=== PATIENT | female | born 1990 | race Caucasian/White ===

== ENCOUNTER 2017-04-29 04:09 | Inpatient (IN) | payer BC ==
[2017-04-29] MEDS ORDERED: Nalbuphine 20 MG/1 ML Amp IVPUSH PRN (06:21)
[2017-04-29] MEDS ORDERED: Sodium Chloride 0.9% 10 ML Syringe FLUSH PRN (06:21)
[2017-04-29] MEDS ORDERED: Oxytocin/Lactated Ringers 10 UNIT/1,000 ML BAG IV SCH ×2 (06:30→20:30)
--- NOTE | 2017-04-29 07:23 | PCM.LDHP ---
L&D History of Present Illness - General Date of Service: 04/29/17 Admit Problem/Dx: Patient Status Order with Admit Dx/Problem 04/29/17 06:21 Patient Status [ADT] Routine Admission Diagnosis/Problem Admission Diagnosis/Problem Source of Information: Patient History Limitations: Reports: No Limitations - History of Present Illness Introduction:: Patient is a 26 y/o at 39 0/7 wks who presented early this AM with SROM. Having some contractions, but feels they are mild. Was first assessed by nursing was 2-3 cm dilated and 100% effaced. 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 S/s are well controlled at this time. - Past Surgical History HEENT Surgical History: Reports: Oral Surgery Other HEENT Surgeries/Procedures: [place] teeth pulled 2005 Social & Family History - Family History Family Medical History: Noncontributory - Tobacco Use Smoking Status *Q: Never Smoker Second Hand Smoke Exposure: No - Caffeine Use Caffeine Use: Reports: None - Alcohol Use Alcohol Use History: No - Recreational Drug Use Recreational Drug Use: No H&P Review of Systems - Review of Systems: Review Of Systems: See Below General: Reports: No Symptoms Pulmonary: Reports: No Symptoms Cardiovascular: Reports: No Symptoms Gastrointestinal: Reports: No Symptoms Genitourinary: Reports: No Symptoms Musculoskeletal: Reports: No Symptoms Psychiatric: Reports: No Symptoms (well managed) L&D Exam - Exam Exam: See Below - Vital Signs Vital Signs: Last Vital Signs Temp 37.1 C 04/29/17 06:21 Pulse 116 H 04/29/17 06:21 Resp 16 04/29/17 06:21 BP 132/85 04/29/17 06:21 Pulse Ox 98 04/29/17 06:21 Weight: 84.368 kg - OB Specific Contraction Intensity: Mild to Moderate Movement: Active Heart Tones: Present Heart Tones per Min: 140 Heart Rate (FHR) Variability: Moderate (6-25 bmp) Presentation: Vertex - Segura Score Segura Score Cervix Position: Midposition Segura Score Consistency: Soft Segura Score Effacement: >80% Segura Score Dilation: 3-4 cm Segura Score 's Station: -1 ,0 Segura Score Total: 10 - Exam General: Alert, Oriented, Cooperative Lungs: Clear to Auscultation, Normal Respiratory Effort Cardiovascular: Regular Rate, Regular Rhythm GI/Abdominal Exam: Soft, Non-Tender Genitourinary: Normal external exam Extremities: Normal Inspection Skin: Warm, Dry, Intact - Patient Data Lab Results Last 24 hrs: Laboratory Results - last 24 hr 04/29/17 Range/Units 06:39 WBC 10.34 H (3.98-10.04) K/mm3 RBC 3.66 L (3.98-5.22) M/mm3 Hgb 11.8 (11.2-15.7) gm/L Hct 34.8 (34.1-44.9) % MCV 95.1 H (79.4-94.8) fl MCH 32.2 (25.6-32.2) pg MCHC 33.9 (32.2-35.5) g/dl RDW Std Deviation 42.2 (36.4-46.3) fL Plt Count 187 (182-369) K/mm3 MPV 9.6 (9.4-12.3) fl Neut % (Auto) 73.1 H (34.0-71.1) % Lymph % (Auto) 15.4 L (19.3-51.7) % Burke % (Auto) 9.1 (4.7-12.5) % Eos % (Auto) 1.4 (0.7-5.8) Baso % (Auto) 0.3 (0.1-1.2) % Neut # (Auto) 7.57 H (1.56-6.13) K/mm3 Lymph # (Auto) 1.59 (1.18-3.74) K/mm3 Burke # (Auto) 0.94 H (0.24-0.36) K/mm3 Eos # (Auto) 0.14 (0.04-0.36) K/mm3 Baso # (Auto) 0.03 (0.01-0.08) K/mm3 Result Diagrams: 04/29/17 06:39 - Problem List (1) 39 weeks gestation of SNOMED Code(s): 01490751 ICD Code: Z3A.39 - 39 WEEKS GESTATION OF Status: Acute Current Visit: Yes (2) SROM (spontaneous rupture of membranes) SNOMED Code(s): 680439181 ICD Code: [id number] - Status: Acute Current Visit: Yes (3) Depression with anxiety SNOMED Code(s): 626991848 ICD Code: F41.8 - OTHER SPECIFIED ANXIETY DISORDERS Status: Acute Current Visit: Yes Problem List Initiated/Reviewed/Updated: Yes Orders Last 24hrs: Active Orders 24 hr Category Date Time Status Patient Status [ADT] Routine ADT 04/29/17 06:21 Active Activity as Tolerated [RC] PFP Care 04/29/17 06:21 Active Communication Order [RC] ASDIRECTED Care 04/29/17 06:21 Active Heart Tones [RC] ASDIRECTED Care 04/29/17 06:22 Active Notify Provider [RC] PFP Care 04/29/17 06:21 Active Notify Provider [RC] PRN Care 04/29/17 06:21 Active Peripheral IV Care [RC] . DIRECTED Care 04/29/17 06:22 Active Vital Signs [RC] Q8HR Care 04/29/17 06:21 Active CBC WITH AUTO DIFF [HEME] Routine Lab 04/29/17 06:39 Results TYPE AND SCREEN [BBK] Routine Lab 04/29/17 06:39 Received Lactated Ringers [Ringers, Lactated] 1,000 ml Med 04/29/17 06:30 Active IV ASDIRECTED Nalbuphine [Nubain] Med 04/29/17 06:21 Active 10 mg IVPUSH Q2H PRN Oxytocin/Lactated Ringers [Pitocin in LR 10 Units/1,000 Med 04/29/17 06:30 Active ML] 10 unit in 1,000 ml IV .CONTINUOUS Sodium Chloride 0.9% [Saline Flush] Med 04/29/17 06:21 Active 10 ml FLUSH ASDIRECTED PRN Electronic Heart Tones Ext w TOCO [WOMSER] Ot 04/29/17 06:21 Ordered Routine Electronic Heart Tones Internal [WOMSER] Per Unit Ot 04/29/17 06:21 Ordered Routine Peripheral IV Insertion Adult [OM.PC] Routine Ot 04/29/17 06:21 Ordered Resuscitation Status Routine Resus Stat 04/29/17 06:21 Ordered Medication Orders Lactated Ringer's (Ringers, Lactated) 1,000 mls @ 100 mls/hr IV ASDIRECTED CHELSEY Oxytocin/Lactated Ringer's (Pitocin In Lr 10 Units/1,000 Ml) 10 unit in 1,000 mls @ 500 mls/hr IV .CONTINUOUS CHELSEY Nalbuphine HCl (Nubain) 10 mg IVPUSH Q2H PRN PRN Reason: Pain (moderate 4-6) Sodium Chloride (Saline Flush) 10 ml FLUSH ASDIRECTED PRN PRN Reason: Keep Vein Open Assessment/Plan Comment:: 26 y/o at 39 0/7 wks presents with SROM * CBC and T&S * GBS negative, no need for antibiotics * Making good change currently, defer pitocin * Pain management per patient preference * Anticipate * Continue home Wellbutrin and Zoloft
[2017-04-29] MEDS: Lactated Ringers 1,000 ML IV SCH ×4 (09:58→20:10)
--- NOTE | 2017-04-29 10:39 | PCM.PREANE ---
Preanesthetic Assessment - Procedure Proposed Procedure: Labor Epidural - Anesthesia/Transfusion/Family Hx Anesthesia History: No Prior Anesthesia Family History of Anesthesia Reaction: No Transfusion History: No Prior Transfusion(s) - Review of Systems General: No Symptoms Pulmonary: No Symptoms Cardiovascular: No Symptoms Gastrointestinal: Other (GERD) Neurological: No Symptoms Other: Reports: Depression, Anxiety - Physical Assessment NPO Status Date: 04/29/17 NPO Status Time: 08:00 O2 Sat by Pulse Oximetry: 98 Respiratory Rate: 16 Vital Signs: Last Vital Signs Temp 37.1 C 04/29/17 06:21 Pulse 116 H 04/29/17 06:21 Resp 16 04/29/17 06:21 BP 132/85 04/29/17 06:21 Pulse Ox 98 04/29/17 06:21 Height: 1.63 m Weight: 84.368 kg ASA Class: 2 Mental Status: Alert & Oriented x3 Dentition: Reports: Normal Dentition Thyro-Mental Finger Breadths: 3 Mouth Opening Finger Breadths: 3 ROM/Head Extension: Full Lungs: Clear to Auscultation, Normal Respiratory Effort Cardiovascular: Regular Rate, Regular Rhythm - Lab Values: Laboratory Last Values WBC 10.34 K/mm3 (3.98-10.04) H 04/29/17 06:39 RBC 3.66 M/mm3 (3.98-5.22) L 04/29/17 06:39 Hgb 11.8 gm/L (11.2-15.7) 04/29/17 06:39 Hct 34.8 % (34.1-44.9) 04/29/17 06:39 MCV 95.1 fl (79.4-94.8) H 04/29/17 06:39 MCH 32.2 pg (25.6-32.2) 04/29/17 06:39 MCHC 33.9 g/dl (32.2-35.5) 04/29/17 06:39 RDW Std Deviation 42.2 fL (36.4-46.3) 04/29/17 06:39 Plt Count 187 K/mm3 (182-369) 04/29/17 06:39 MPV 9.6 fl (9.4-12.3) 04/29/17 06:39 Neut % (Auto) 73.1 % (34.0-71.1) H 04/29/17 06:39 Lymph % (Auto) 15.4 % (19.3-51.7) L 04/29/17 06:39 Desha % (Auto) 9.1 % (4.7-12.5) 04/29/17 06:39 Eos % (Auto) 1.4 (0.7-5.8) 04/29/17 06:39 Baso % (Auto) 0.3 % (0.1-1.2) 04/29/17 06:39 Neut # (Auto) 7.57 K/mm3 (1.56-6.13) H 04/29/17 06:39 Lymph # (Auto) 1.59 K/mm3 (1.18-3.74) 04/29/17 06:39 Desha # (Auto) 0.94 K/mm3 (0.24-0.36) H 04/29/17 06:39 Eos # (Auto) 0.14 K/mm3 (0.04-0.36) 04/29/17 06:39 Baso # (Auto) 0.03 K/mm3 (0.01-0.08) 04/29/17 06:39 Manual Slide Review Normal smear 04/29/17 06:39 Blood Type A POSITIVE 04/29/17 06:39 Gel Antibody Screen Negative 04/29/17 06:39 - Allergies Allergies/Adverse Reactions: Allergies Allergy/AdvReac Type Severity Reaction Status Date / Time No Known Allergies Allergy Verified 04/29/17 06:52 - Blood Blood Available: No Product(s) Available: None - Anesthesia Plan Pre-Op Medication Ordered: None - Acknowledgements Anesthesia Type Planned: Epidural Pt an Appropriate Candidate for the Planned Anesthesia: Yes Alternatives and Risks of Anesthesia Discussed w Pt/Guardian: Yes Pt/Guardian Understands and Agrees with Anesthesia Plan: Yes 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 S/s are well controlled at this time. - Past Surgical History HEENT Surgical History: Reports: Oral Surgery Other HEENT Surgeries/Procedures: [place] teeth pulled 2005 - SUBSTANCE USE Smoking Status *Q: Never Smoker Second Hand Smoke Exposure: No Recreational Drug Use History: No - HOME MEDS Home Medications: Home Meds PNV95/Ferrous Fumarate/FA [ Tablet] 04/29/17 [History] Sertraline [Zoloft] 150 mg PO DAILY 04/29/17 [History] buPROPion HCl [Wellbutrin Xl] 300 mg PO DAILY 04/29/17 [History] - CURRENT (IN HOUSE) MEDS Current Meds: Current Medications Lactated Ringer's (Ringers, Lactated) 1,000 mls @ 100 mls/hr IV ASDIRECTED CHELSEY Oxytocin/Lactated Ringer's (Pitocin In Lr 10 Units/1,000 Ml) 10 unit in 1,000 mls @ 500 mls/hr IV .CONTINUOUS CHELSEY Nalbuphine HCl (Nubain) 10 mg IVPUSH Q2H PRN PRN Reason: Pain (moderate 4-6) Sodium Chloride (Saline Flush) 10 ml FLUSH ASDIRECTED PRN PRN Reason: Keep Vein Open
[2017-04-29] MEDS ORDERED: diphenhydrAMINE 50 MG/ML SDV IVPUSH PRN ×3 (10:40→23:36)
[2017-04-29] MEDS ORDERED: ePHEDrine 50 MG/ML SDV IVPUSH PRN (10:40)
[2017-04-29] MEDS ORDERED: fentaNYL 100 MCG/2 ML SDV EPIDUR PRN (10:40)
[2017-04-29] MEDS ORDERED: Ondansetron 4 MG/2 ML SDV IVPUSH PRN ×2 (10:40→22:28)
[2017-04-29] MEDS ORDERED: Bupivacaine/fentaNYL/NS 100 ML Bag EPIDUR SCH (10:45)
[2017-04-29] MEDS ORDERED: Bupivacaine 0.25% 10 ML SDV ONE (10:45)
[2017-04-29] MEDS ORDERED: Citric Acid/Sodium Citrate Solution 30 ML Cup ONE (20:51)
[2017-04-29] MEDS ORDERED: Metoclopramide 10 MG/2 ML SDV ONE (20:51)
[2017-04-29] MEDS ORDERED: ceFAZolin 2 GM in Premix Bag 1 BAG IV ONE (20:58)
[2017-04-29] MEDS ORDERED: Metoclopramide 10 MG/2 ML SDV IVPUSH ONE (20:58)
[2017-04-29] MEDS ORDERED: Citric Acid/Sodium Citrate Solution 30 ML Cup PO ONE (20:58)
--- NOTE | 2017-04-29 20:59 | PCM.PRNOTE ---
- Free Text/Narrative Note: Patient found to be complete and began pushing shortly thereafter. After about 2 hours of pushing she was having significant pain through her epidural and so anesthesia called to rebolus epidural. Pitocin then started to aid in pushing effort. At 3 hours of pushing she was becoming significantly fatigued. Reviewed options of trial of vacuum assistance, continued pushing without operative attempt, or moving to a primary . Patient did desire attempt at vacuum. Risks of scalp laceration, intracranial hematoma , and significant vaginal lacerations reviewed. See below. The patient was pushing in the dorsal lithotomy position. Sterile vaginal exam complete/complete/+2 station. head in PILAR presentation. Maternal pushing effort was good and the pelvis was felt to be adequate for an instrument assisted delivery. Given maternal exhaustion the decision was made to proceed with vacuum assisted vaginal delivery. The mushroom cup was placed without difficulty with care to avoid the vaginal side cuh. Time of placement was 2041. Total pressure applied 550 mmHg. Over the next 4 contraction assistance given with movement of baby noted, but patient not tolerating well. Vacuum removed at 2046. Total pop offs 0. Discussed option of continued pushing at this time vs moving to primary and she preferred . OR crew notified along with anesthesia and pediatrics. Fareed VALDERRAMA.
--- NOTE | 2017-04-29 21:00 | PCM.OPNOTE ---
- General Post-Op/Procedure Note Date of Surgery/Procedure: 04/29/17 Operative Procedure(s): Primary Low Transverse Findings: Baby boy in a vertex presentation. Weight of 6 lbs 15 oz. APGARS of 5 & 7. Normal appearance of the uterus, fallopian tubes, and ovaries Pre Op Diagnosis: 39 weeks gestation. Normal labor. Failure to progress in 2nd stage with failed VAVD Post-Op Diagnosis: Same Anesthesia Technique: Epidural Primary Surgeon: Iman Cherry Secondary Surgeon: Kishor Finnegan Anesthesia Provider: Dominick Lau Pathology: Cord blood collected. Placenta discarded Fluid Replacement, Intraop: 1,200 Output, Urine Amount: 100 EBL in mLs: 500 Complications: None Condition: Good Free Text/Narrative:: The risks, benefits, indications, potential complications, and alternatives were explained to the patient and informed consent obtained. After induction of anesthesia, the patient was placed in a supine position and then draped and prepped in the usual sterile manner. A Pfannenstiel incision was made and carried down through the subcutaneous tissue to the fascia. Fascial incision was made and extended transversely. The fascia was from the underlying rectus tissue superiorly and inferiorly. The peritoneum was identified and entered. Peritoneal incision was extended longitudinally. The utero-vesical peritoneal reflection was incised transversely and the bladder flap was bluntly freed from the lower uterine segment. A low transverse uterine incision was made sharply with a scalpel and extended bluntly in a cephalocaudad direction. Baby so low in the pelvis that infant shoulder was at level of hysterotomy. With slow continued advancement of the my hand around baby's head was finally able to elevate baby up through hysterotomoy. A baby boy was delivered with APGARS as above. After the umbilical cord was clamped and cut cord blood was obtained for evaluation. The placenta was removed intact and appeared normal. The uterus was exteriorized and cleared of clots. The uterine outline, tubes and ovaries appeared normal. The uterine incision was closed with running locked sutures of 0 Vicryl. Hemostasis was obtained with a second imbricating layer of 0 vicryl. Several interrupted suture of 0 vicryl also placed in a figure of eight fashion. The uterus was then placed back into the abdomen. The infracolic gutters were cleared of blood clots. The fascia was then reapproximated with running sutures of 0 Vicryl. The sucutaneous tissue was irrigated with sterile warm normal saline, hemostasis obtained with cautery. The skin was reapproximated with running Subcuticular 4 -0 monocryl sutures. Instrument, sponge, and needle counts were correct prior the abdominal closure and at the conclusion of the case.
--- NOTE | 2017-04-29 21:12 | PCM.PNLD ---
Labor Progress Note - VS & Meds Vital Signs: Last Vital Signs Temp 37.1 C 04/29/17 06:21 Pulse 116 H 04/29/17 06:21 Resp 16 04/29/17 10:40 BP 132/85 04/29/17 06:21 Pulse Ox 98 04/29/17 10:40 Active Medications: Current Medications Diphenhydramine HCl (Benadryl) 25 mg IVPUSH Q6H PRN PRN Reason: Pruritis Ephedrine Sulfate (Ephedrine Sulfate) 5 mg IVPUSH ASDIRECTED PRN PRN Reason: Hypotension Fentanyl (Sublimaze) 100 mcg EPIDUR Q3H PRN PRN Reason: Pain Last Admin: 04/29/17 11:25 Dose: 100 mcg Fentanyl/Bupivacaine HCl (Fentanyl/Bupivacaine/Ns 2 Mcg-0.125% 100 Ml) 100 ml EPIDUR ASDIRECTED CHELSEY Last Admin: 04/29/17 11:26 Dose: 100 ml Lactated Ringer's (Ringers, Lactated) 1,000 mls @ 100 mls/hr IV ASDIRECTED CHELSEY Last Admin: 04/29/17 20:10 Dose: 100 mls/hr Oxytocin/Lactated Ringer's (Pitocin In Lr 10 Units/1,000 Ml) 10 unit in 1,000 mls @ 500 mls/hr IV .CONTINUOUS CHELSEY Oxytocin/Lactated Ringer's (Pitocin In Lr 10 Units/1,000 Ml) 10 unit in 1,000 mls @ 12 mls/hr IV TITRATE CHELSEY; 2 MUNITS/MIN PRN Reason: Protocol Last Titration: 04/29/17 20:52 Dose: 0 munits/min, 0 mls/hr Cefazolin Sodium/Dextrose 2 gm (/ Premix) 50 mls @ 100 mls/hr IV ONETIME ONE Stop: 04/29/17 21:27 Nalbuphine HCl (Nubain) 10 mg IVPUSH Q2H PRN PRN Reason: Pain (moderate 4-6) Non-Formulary Medication (Sertraline) 150 mg PO DAILY CHELSEY Non-Formulary Medication (Bupropion Hcl [Wellbutrin Xl]) 300 mg PO DAILY CHELSEY Ondansetron HCl (Zofran) 4 mg IVPUSH ONETIME PRN PRN Reason: Nausea/Vomiting Sodium Chloride (Saline Flush) 10 ml FLUSH ASDIRECTED PRN PRN Reason: Keep Vein Open Discontinued Medications Citric Acid/Sodium Citrate (Bicitra Solution) Confirm Administered Dose 30 ml .ROUTE .STK-MED ONE Stop: 04/29/17 20:52 Citric Acid/Sodium Citrate (Bicitra Solution) 30 ml PO ONETIME ONE Stop: 04/29/17 20:59 Lidocaine/Epinephrine (Xylocaine-Mpf 2%-Epi 1:200,000) Confirm Administered Dose 20 ml .ROUTE .STK-MED ONE Stop: 04/29/17 21:14 Metoclopramide HCl (Reglan) Confirm Administered Dose 10 mg .ROUTE .STK-MED ONE Stop: 04/29/17 20:52 Metoclopramide HCl (Reglan) 10 mg IVPUSH ONETIME ONE Stop: 04/29/17 20:59 Ondansetron HCl (Zofran) Confirm Administered Dose 4 mg .ROUTE .STK-MED ONE Stop: 04/29/17 21:14 Oxytocin (Pitocin) Confirm Administered Dose 10 unit .ROUTE .STK-MED ONE Stop: 04/29/17 21:14 Sodium Bicarbonate (Sodium Bicarbonate 8.4%) Confirm Administered Dose 50 meq .ROUTE .STK-MED ONE Stop: 04/29/17 21:14 - Uterine Contractions Uterine Monitoring Mode: External [place] Contraction Intensity: Mild to Moderate - Monitoring Monitor Mode: External Ultrasound Heart Rate (FHR) Baseline: 135 Heart Rate (FHR) Variability: Moderate (6-25 bmp) Accelerations: Present, 15x15 Decelerations: None Strip Review: Category I - Labor Progress (Free Text) Labor Progress: Patient checked by nursing early and found to be 5 cm. Comfortable with epidural. Continue present management.
[2017-04-29] MEDS ORDERED: Ondansetron 4 MG/2 ML SDV ONE ×3 (21:13→21:18)
[2017-04-29] MEDS ORDERED: Sodium Bicarbonate 8.4% 50 MEQ/50 ML SDV ONE (21:13)
[2017-04-29] MEDS ORDERED: Oxytocin 10 Units/1 ML SDV ONE ×3 (21:13→21:18)
[2017-04-29] MEDS ORDERED: Lidocaine 2% with EPINEPHrine 1:200,000 20 ML SDV ONE (21:13)
--- NOTE | 2017-04-29 21:16 | PCM.PNLD ---
Labor Progress Note - VS & Meds Vital Signs: Last Vital Signs Temp 37.1 C 04/29/17 06:21 Pulse 116 H 04/29/17 06:21 Resp 16 04/29/17 10:40 BP 132/85 04/29/17 06:21 Pulse Ox 98 04/29/17 10:40 Active Medications: Current Medications Diphenhydramine HCl (Benadryl) 25 mg IVPUSH Q6H PRN PRN Reason: Pruritis Ephedrine Sulfate (Ephedrine Sulfate) 5 mg IVPUSH ASDIRECTED PRN PRN Reason: Hypotension Fentanyl (Sublimaze) 100 mcg EPIDUR Q3H PRN PRN Reason: Pain Last Admin: 04/29/17 11:25 Dose: 100 mcg Fentanyl/Bupivacaine HCl (Fentanyl/Bupivacaine/Ns 2 Mcg-0.125% 100 Ml) 100 ml EPIDUR ASDIRECTED CHELSEY Last Admin: 04/29/17 11:26 Dose: 100 ml Lactated Ringer's (Ringers, Lactated) 1,000 mls @ 100 mls/hr IV ASDIRECTED CHELSEY Last Admin: 04/29/17 20:10 Dose: 100 mls/hr Oxytocin/Lactated Ringer's (Pitocin In Lr 10 Units/1,000 Ml) 10 unit in 1,000 mls @ 500 mls/hr IV .CONTINUOUS CHELSEY Oxytocin/Lactated Ringer's (Pitocin In Lr 10 Units/1,000 Ml) 10 unit in 1,000 mls @ 12 mls/hr IV TITRATE CHELSEY; 2 MUNITS/MIN PRN Reason: Protocol Last Titration: 04/29/17 20:52 Dose: 0 munits/min, 0 mls/hr Cefazolin Sodium/Dextrose 2 gm (/ Premix) 50 mls @ 100 mls/hr IV ONETIME ONE Stop: 04/29/17 21:27 Nalbuphine HCl (Nubain) 10 mg IVPUSH Q2H PRN PRN Reason: Pain (moderate 4-6) Non-Formulary Medication (Sertraline) 150 mg PO DAILY CHELSEY Non-Formulary Medication (Bupropion Hcl [Wellbutrin Xl]) 300 mg PO DAILY CHELSEY Ondansetron HCl (Zofran) 4 mg IVPUSH ONETIME PRN PRN Reason: Nausea/Vomiting Sodium Chloride (Saline Flush) 10 ml FLUSH ASDIRECTED PRN PRN Reason: Keep Vein Open Discontinued Medications Citric Acid/Sodium Citrate (Bicitra Solution) Confirm Administered Dose 30 ml .ROUTE .[facility]-MED ONE Stop: 04/29/17 20:52 Last Admin: 04/29/17 21:11 Dose: Not Given Citric Acid/Sodium Citrate (Bicitra Solution) 30 ml PO ONETIME ONE Stop: 04/29/17 20:59 Last Admin: 04/29/17 21:11 Dose: 30 ml Lactated Ringer's (Ringers, Lactated) Confirm Administered Dose 1,000 mls @ as directed .ROUTE .ST-MED ONE Stop: 04/29/17 21:19 Lidocaine/Epinephrine (Xylocaine-Mpf 2%-Epi 1:200,000) Confirm Administered Dose 20 ml .ROUTE .[facility]-MED ONE Stop: 04/29/17 21:14 Metoclopramide HCl (Reglan) Confirm Administered Dose 10 mg .ROUTE .[facility] ONE Stop: 04/29/17 20:52 Last Admin: 04/29/17 21:11 Dose: Not Given Metoclopramide HCl (Reglan) 10 mg IVPUSH ONETIME ONE Stop: 04/29/17 20:59 Last Admin: 04/29/17 21:11 Dose: 10 mg Morphine Sulfate (Duramorph Pf) Confirm Administered Dose 10 mg .ROUTE .ST-MED ONE Stop: 04/29/17 21:19 Ondansetron HCl (Zofran) Confirm Administered Dose 4 mg .ROUTE .[facility]-MED ONE Stop: 04/29/17 21:14 Ondansetron HCl (Zofran) Confirm Administered Dose 4 mg .ROUTE .ST-MED ONE Stop: 04/29/17 21:19 Ondansetron HCl (Zofran) Confirm Administered Dose 4 mg .ROUTE .ST-MED ONE Stop: 04/29/17 21:19 Oxytocin (Pitocin) Confirm Administered Dose 10 unit .ROUTE .ST-MED ONE Stop: 04/29/17 21:14 Oxytocin (Pitocin) Confirm Administered Dose 10 unit .ROUTE .STK-MED ONE Stop: 04/29/17 21:19 Oxytocin (Pitocin) Confirm Administered Dose 10 unit .ROUTE .ST-MED ONE Stop: 04/29/17 21:19 Sodium Bicarbonate (Sodium Bicarbonate 8.4%) Confirm Administered Dose 50 meq .ROUTE .STK-MED ONE Stop: 04/29/17 21:14 - Uterine Contractions Uterine Monitoring Mode: External [place] Contraction Intensity: Moderate to Strong - Monitoring Monitor Mode: External Ultrasound Heart Rate (FHR) Baseline: 145 Heart Rate (FHR) Variability: Moderate (6-25 bmp) Accelerations: Present, 15x15 Decelerations: Variable, Intermittent (<50% x 20 min) Strip Review: Category II - Vaginal Exam Dilation (cm): 10 Effacement (Percent): 100 Station: 0 Cervical Position: Anterior - Labor Progress (Free Text) Labor Progress: Patient doing well. Will get all set up and then start pushing.
[2017-04-29] MEDS ORDERED: Lactated Ringers 1,000 ML ONE (21:18)
[2017-04-29] MEDS ORDERED: Morphine PF 10 MG/10 ML SDV ONE (21:18)
[2017-04-29] MEDS ORDERED: Bupivacaine 0.5% 30 ML SDV ONE (21:19)
[2017-04-29] MEDS ORDERED: ceFAZolin 1 GM Vial ONE (21:44)
[2017-04-29] MEDS ORDERED: Ketorolac 30 MG/ML SDV ONE (21:58)
[2017-04-29] MEDS ORDERED: Meperidine PF 50 MG/ML Syringe ONE (22:04)
--- NOTE | 2017-04-29 22:26 | PCM.POSTAN ---
POST ANESTHESIA ASSESSMENT - MENTAL STATUS Mental Status: Alert, Oriented - VITAL SIGNS Pulse Rate: 92 SaO2: 93 Resp Rate: 17 Blood Pressure: 112/67 Temperature: 37.4 C - RESPIRATORY Respiratory Status: Respiratory Rate WNL, Airway Patent, O2 Saturation Stable, Supplemental Oxygen - CARDIOVASCULAR CV Status: Pulse Rate WNL, Blood Pressure Stable - GASTROINTESTINAL GI Status: No Symptoms - PAIN Pain Score: 0 - POST OP HYDRATION Hydration Status: Adequate & Stable
[2017-04-29] MEDS ORDERED: fentaNYL 100 MCG/2 ML SDV IVPUSH PRN (22:28)
[2017-04-29] MEDS ORDERED: Docusate Sodium 100 MG Cap PO PRN (23:36)
[2017-04-29] MEDS ORDERED: Dextrose 5%-Lactated Ringers 1,000 ML IV SCH (23:36)
[2017-04-29] MEDS ORDERED: Lanolin 100% Cream 7 GM Tube TOP PRN (23:36)
[2017-04-29] MEDS ORDERED: Ondansetron 4 MG/2 ML SDV IV PRN (23:36)
[2017-04-30] MEDS: Ketorolac 30 MG/ML SDV IVPUSH SCH ×3 (04:12→15:55)
--- NOTE | 2017-04-30 08:25 | PCM.PNPP ---
- General Info Date of Service: 04/30/17 Functional Status: Reports: Pain Controlled, Tolerating Diet, Ambulating - Review of Systems General: Reports: No Symptoms Pulmonary: Reports: No Symptoms Cardiovascular: Reports: No Symptoms Gastrointestinal: Reports: Abdominal Pain Genitourinary: Reports: No Symptoms Musculoskeletal: Reports: No Symptoms - Patient Data Vital Signs - Most Recent: Last Vital Signs Temp 36.4 C 04/30/17 04:00 Pulse 100 04/30/17 04:00 Resp 18 04/30/17 06:48 BP 118/63 04/30/17 04:00 Pulse Ox 99 04/30/17 06:48 Weight - Most Recent: 84.368 kg I&O - Last 24 Hours: Intake & Output 04/29/17 04/30/17 04/30/17 22:59 06:59 14:59 Intake Total 3000 1200 Output Total 100 650 100 Balance 2900 -650 1100 Lab Results - Last 24 Hours: Laboratory Results - last 24 hr 04/29/17 04/30/17 Range/Units 06:39 05:50 WBC 13.15 H (3.98-10.04) K/mm3 RBC 3.04 L (3.98-5.22) M/mm3 Hgb 9.8 L (11.2-15.7) gm/L Hct 29.7 L (34.1-44.9) % MCV 97.7 H (79.4-94.8) fl MCH 32.2 (25.6-32.2) pg MCHC 33.0 (32.2-35.5) g/dl RDW Std Deviation 42.6 (36.4-46.3) fL Plt Count 156 L (182-369) K/mm3 MPV 10.4 (9.4-12.3) fl Blood Type A POSITIVE Gel Antibody Screen Negative Med Orders - Current: Current Medications Diphenhydramine HCl (Benadryl) 25 mg IVPUSH Q6H PRN PRN Reason: Itching or Nausea Last Admin: 04/30/17 02:09 Dose: 25 mg Docusate Sodium (Colace) 100 mg PO Q12H PRN PRN Reason: Constipation Emollient Ointment (Lansinoh Hpa) 0 gm TOP ASDIRECTED PRN PRN Reason: Sore Nipples Ibuprofen (Motrin) 600 mg PO Q6H PRN PRN Reason: mild pain or fever Ketorolac Tromethamine (Toradol) 30 mg IVPUSH Q6H [facility] Stop: 04/30/17 16:01 Last Admin: 04/30/17 04:12 Dose: 30 mg Non-Formulary Medication (Sertraline) 150 mg PO DAILY [facility] Non-Formulary Medication (Bupropion Hcl [Wellbutrin Xl]) 300 mg PO DAILY [facility] Ondansetron HCl (Zofran) 4 mg IV Q8H PRN PRN Reason: Nausea/Vomiting Oxycodone/Acetaminophen (Percocet 325-5 Mg) 2 tab PO Q4H PRN PRN Reason: Pain (moderate 4-6) Discontinued Medications Bupivacaine HCl (Marcaine 0.5%) Confirm Administered Dose 30 ml .ROUTE .STK-MED ONE Stop: 04/29/17 21:20 Cefazolin Sodium (Ancef) Confirm Administered Dose 2 gm .ROUTE .STK-MED ONE Stop: 04/29/17 21:45 Citric Acid/Sodium Citrate (Bicitra Solution) Confirm Administered Dose 30 ml .ROUTE .STK-MED ONE Stop: 04/29/17 20:52 Last Admin: 04/29/17 21:11 Dose: Not Given Citric Acid/Sodium Citrate (Bicitra Solution) 30 ml PO ONETIME ONE Stop: 04/29/17 20:59 Last Admin: 04/29/17 21:11 Dose: 30 ml Diphenhydramine HCl (Benadryl) 25 mg IVPUSH Q6H PRN PRN Reason: Pruritis Diphenhydramine HCl (Benadryl) 25 mg IVPUSH Q6H PRN PRN Reason: Pruritis Ephedrine Sulfate (Ephedrine Sulfate) 5 mg IVPUSH ASDIRECTED PRN PRN Reason: Hypotension Fentanyl (Sublimaze) 100 mcg EPIDUR Q3H PRN PRN Reason: Pain Last Admin: 04/29/17 11:25 Dose: 100 mcg Fentanyl (Sublimaze) 50 mcg IVPUSH Q5M PRN PRN Reason: Pain Stop: 04/29/17 22:44 Fentanyl/Bupivacaine HCl (Fentanyl/Bupivacaine/Ns 2 Mcg-0.125% 100 Ml) 100 ml EPIDUR ASDIRECTED [facility] Last Admin: 04/29/17 11:26 Dose: 100 ml Lactated Ringer's (Ringers, Lactated) 1,000 mls @ 100 mls/hr IV ASDIRECTED [facility] Last Admin: 04/29/17 20:10 Dose: 100 mls/hr Oxytocin/Lactated Ringer's (Pitocin In Lr 10 Units/1,000 Ml) 10 unit in 1,000 mls @ 500 mls/hr IV .CONTINUOUS [facility] Oxytocin/Lactated Ringer's (Pitocin In Lr 10 Units/1,000 Ml) 10 unit in 1,000 mls @ 12 mls/hr IV TITRATE [facility]; 2 MUNITS/MIN PRN Reason: Protocol Last Titration: 04/29/17 20:52 Dose: 0 munits/min, 0 mls/hr Cefazolin Sodium/Dextrose 2 gm (/ Premix) 50 mls @ 100 mls/hr IV ONETIME ONE Stop: 04/29/17 21:27 Lactated Ringer's (Ringers, Lactated) Confirm Administered Dose 1,000 mls @ as directed .ROUTE .STK-MED ONE Stop: 04/29/17 21:19 Dextrose/Lactated Ringer's (Dextrose 5%-Lactated Ringers) 1,000 mls @ 125 mls/ hr IV ASDIRECTED [facility] Stop: 04/30/17 07:35 Last Admin: 04/30/17 00:44 Dose: 125 mls/hr Ketorolac Tromethamine (Toradol) Confirm Administered Dose 30 mg .ROUTE .STK- MED ONE Stop: 04/29/17 21:59 Lidocaine/Epinephrine (Xylocaine-Mpf 2%-Epi 1:200,000) Confirm Administered Dose 20 ml .ROUTE .STK-MED ONE Stop: 04/29/17 21:14 Meperidine HCl (Demerol) Confirm Administered Dose 50 mg .ROUTE .STK-MED ONE Stop: 04/29/17 22:05 Metoclopramide HCl (Reglan) Confirm Administered Dose 10 mg .ROUTE .STK-MED ONE Stop: 04/29/17 20:52 Last Admin: 04/29/17 21:11 Dose: Not Given Metoclopramide HCl (Reglan) 10 mg IVPUSH ONETIME ONE Stop: 04/29/17 20:59 Last Admin: 04/29/17 21:11 Dose: 10 mg Morphine Sulfate (Duramorph Pf) Confirm Administered Dose 10 mg .ROUTE .STK-MED ONE Stop: 04/29/17 21:19 Nalbuphine HCl (Nubain) 10 mg IVPUSH Q2H PRN PRN Reason: Pain (moderate 4-6) Ondansetron HCl (Zofran) 4 mg IVPUSH ONETIME PRN PRN Reason: Nausea/Vomiting Ondansetron HCl (Zofran) Confirm Administered Dose 4 mg .ROUTE .STK-MED ONE Stop: 04/29/17 21:14 Ondansetron HCl (Zofran) Confirm Administered Dose 4 mg .ROUTE .STK-MED ONE Stop: 04/29/17 21:19 Ondansetron HCl (Zofran) Confirm Administered Dose 4 mg .ROUTE .STK-MED ONE Stop: 04/29/17 21:19 Ondansetron HCl (Zofran) 4 mg IVPUSH ONETIME PRN PRN Reason: Nausea/Vomiting Oxytocin (Pitocin) Confirm Administered Dose 10 unit .ROUTE .STK-MED ONE Stop: 04/29/17 21:14 Oxytocin (Pitocin) Confirm Administered Dose 10 unit .ROUTE .STK-MED ONE Stop: 04/29/17 21:19 Oxytocin (Pitocin) Confirm Administered Dose 10 unit .ROUTE .STK-MED ONE Stop: 04/29/17 21:19 Sodium Bicarbonate (Sodium Bicarbonate 8.4%) Confirm Administered Dose 50 meq .ROUTE .STK-MED ONE Stop: 04/29/17 21:14 Sodium Chloride (Saline Flush) 10 ml FLUSH ASDIRECTED PRN PRN Reason: Keep Vein Open - Infant Interaction Infant Disposition, : [place] in Room with Family Infant Interaction: Holding Infant Feeding: Bottle Fed Support Person: , Mother - Recovery Exam Fundal Tone: Firm Fundal Level: 1 Fingerbreadths Below Umbilicus Fundal Placement: Midline Lochia Amount: Small Lochia Color: Rubra/Red Perineum Description: Edematous Bladder Status: Indwelling Catheter in Place - Exam General: Alert, Oriented, Cooperative Lungs: Clear to Auscultation, Normal Respiratory Effort Cardiovascular: Regular Rate, Regular Rhythm GI/Abdominal Exam: Soft, No Distention, Tender Extremities: Normal Inspection, Pedal Edema Skin: Warm, Dry, Intact Wound/Incisions: Healing Well, Dressing Dry and Intact - Problem List & Annotations (1) 39 weeks gestation of SNOMED Code(s): 72000387 Code(s): Z3A.39 - 39 WEEKS GESTATION OF Status: Acute Current Visit: Yes (2) SROM (spontaneous rupture of membranes) SNOMED Code(s): 111174349 Code(s): EAZ7688 - Status: Acute Current Visit: Yes (3) Depression with anxiety SNOMED Code(s): 160067393 Code(s): F41.8 - OTHER SPECIFIED ANXIETY DISORDERS Status: Acute Current Visit: Yes - Problem List Review Problem List Initiated/Reviewed/Updated: Yes - My Orders Last 24 Hours: My Active Orders 04/29/17 20:58 Procedure Site Prep Instruct [RC] ASDIRECTED Verify Patient Consent Obtain [RC] PER UNIT ROUTINE Vital Signs [RC] PFP 04/29/17 23:36 Activity as Tolerated [RC] .Routine Activity as Tolerated [RC] .Routine Antiembolic Devices [RC] PER UNIT ROUTINE Antiembolic Devices [RC] PER UNIT ROUTINE Communication Order [RC] PER UNIT ROUTINE Communication Order [RC] PER UNIT ROUTINE Intake and Output [RC] Q4HR Intake and Output [RC] Q4HR Notify Provider Intake and Out [RC] ASDIRECTED Notify Provider Intake and Out [RC] ASDIRECTED RT Incentive Spirometry [RC] Q2HWA RT Incentive Spirometry [RC] Q2HWA Vital Signs [RC] PER UNIT ROUTINE Acetaminophen/oxyCODONE [Percocet 325-5 MG] 2 tab PO Q4H PRN Acetaminophen/oxyCODONE [Percocet 325-5 MG] 2 tab PO Q4H PRN Dextrose 5%-Lactated Ringers 1,000 ml IV ASDIRECTED Docusate Sodium [Colace] 100 mg PO Q12H PRN Docusate Sodium [Colace] 100 mg PO Q12H PRN Lanolin [Lansinoh HPA] See Dose Instructions TOP ASDIRECTED PRN Lanolin [Lansinoh HPA] See Dose Instructions TOP ASDIRECTED PRN Ondansetron [Zofran] 4 mg IV Q8H PRN Ondansetron [Zofran] 4 mg IV Q8H PRN diphenhydrAMINE [Benadryl] 25 mg IVPUSH Q6H PRN diphenhydrAMINE [Benadryl] 25 mg IVPUSH Q6H PRN Assess Lochia [WOMSER] Per Unit Routine Assess Lochia [WOMSER] Per Unit Routine Assess Uterine Involution [WOMSER] Per Unit Routine Assess Uterine Involution [WOMSER] Per Unit Routine Breast Pump [WOMSER] Per Unit Routine Breast Pump [WOMSER] Per Unit Routine Heat Therapy [OM.PC] Per Unit Routine Heat Therapy [OM.PC] Per Unit Routine Sequential Compression Device [OM.PC] Per Unit Routine Sequential Compression Device [OM.PC] Per Unit Routine 04/30/17 04:00 Ketorolac [Toradol] 30 mg IVPUSH Q6H 04/30/17 09:00 Sertraline 150 mg PO DAILY buPROPion HCl [Wellbutrin Xl] 300 mg PO DAILY 04/30/17 22:00 Ibuprofen [Motrin] 600 mg PO Q6H PRN Ibuprofen [Motrin] 600 mg PO Q6H PRN 04/30/17 22:28 Urinary Catheter Removal [RC] Per Unit Routine - Assessment Assessment:: 26 y/o G1 now P1001 POD#1 from PLTCS for FTP in 2nd stage after spontaneous onset of labor at 39 wks - Plan Plan:: S/p PLTCS * Routine cares * Bottle feeding * Continue home Wellbutrin and Zoloft * Discharge home in 1-2 days
--- NOTE | 2017-04-30 09:58 | PCM48HPAN ---
Post Anesthesia Note - EVALUATION WITHIN 48HRS OF ANESTHETIC Vital Signs in Normal Range: Yes Patient Participated in Evaluation: Yes Respiratory Function Stable: Yes Airway Patent: Yes Cardiovascular Function Stable: Yes Hydration Status Stable: Yes Pain Control Satisfactory: Yes Nausea and Vomiting Control Satisfactory: Yes Mental Status Recovered: Yes - COMMENTS/OBSERVATIONS Free Text/Narrative:: Pt reports both she and baby are doing well. epidural workedc well, required one re-bolus. went to after 4 hours of pushing without progress. epidural has worn off completely. has not used restroom as [facility] was just d/c' d. pt did have one episode of itching relieved with benadryl. no n/v, no headache, no f/c. site ok. ambulating, taking p.o.
[2017-04-30] MEDS: SERTRALINE 100 MG PO SCH (11:00)
[2017-04-30] MEDS: BUPROPION HCL 300 MG PO SCH (11:00)
[2017-04-30] MEDS: Acetaminophen/oxyCODONE 325-5 MG Tab PO PRN ×2 (17:26→21:30)
[2017-04-30] MEDS ORDERED: Ibuprofen 600 MG Tab PO PRN (22:00)
[2017-05-01] MEDS: Acetaminophen/oxyCODONE 325-5 MG Tab PO PRN ×3 (04:13→14:56)
--- NOTE | 2017-05-01 07:02 | PCM.PNPP ---
- General Info Date of Service: 05/01/17 Functional Status: Reports: Pain Controlled, Tolerating Diet, Ambulating, Urinating - Review of Systems General: Reports: No Symptoms Pulmonary: Reports: No Symptoms Cardiovascular: Reports: No Symptoms Gastrointestinal: Reports: No Symptoms Genitourinary: Reports: No Symptoms Musculoskeletal: Reports: No Symptoms Neurological: Reports: No Symptoms - Patient Data Vital Signs - Most Recent: Last Vital Signs Temp 36.6 C 05/01/17 04:16 Pulse 92 05/01/17 04:16 Resp 14 05/01/17 04:16 BP 118/71 05/01/17 04:16 Pulse Ox 97 05/01/17 04:16 Weight - Most Recent: 84.368 kg I&O - Last 24 Hours: Intake & Output 04/30/17 05/01/17 05/01/17 22:59 06:59 14:59 Intake Total 240 240 Output Total 600 Balance -360 240 Lab Results - Last 24 Hours: Laboratory Results - last 24 hr 04/30/17 Range/Units 05:50 WBC 13.15 H (3.98-10.04) K/mm3 RBC 3.04 L (3.98-5.22) M/mm3 Hgb 9.8 L (11.2-15.7) gm/L Hct 29.7 L (34.1-44.9) % MCV 97.7 H (79.4-94.8) fl MCH 32.2 (25.6-32.2) pg MCHC 33.0 (32.2-35.5) g/dl RDW Std Deviation 42.6 (36.4-46.3) fL Plt Count 156 L (182-369) K/mm3 MPV 10.4 (9.4-12.3) fl Med Orders - Current: Current Medications Diphenhydramine HCl (Benadryl) 25 mg IVPUSH Q6H PRN PRN Reason: Itching or Nausea Last Admin: 04/30/17 02:09 Dose: 25 mg Docusate Sodium (Colace) 100 mg PO Q12H PRN PRN Reason: Constipation Emollient Ointment (Lansinoh Hpa) 0 gm TOP ASDIRECTED PRN PRN Reason: Sore Nipples Ibuprofen (Motrin) 600 mg PO Q6H PRN PRN Reason: mild pain or fever Ondansetron HCl (Zofran) 4 mg IV Q8H PRN PRN Reason: Nausea/Vomiting Oxycodone/Acetaminophen (Percocet 325-5 Mg) 2 tab PO Q4H PRN PRN Reason: Pain (moderate 4-6) Last Admin: 05/01/17 04:13 Dose: 2 tab Sertraline 100 Mg (Tablets) 0 each PO DAILY [facility] Last Admin: 04/30/17 11:00 Dose: 1.5 each Bupropion Hcl Xl 300 (Mg Tablets) 0 each PO DAILY [facility] Last Admin: 04/30/17 11:00 Dose: 1 each Discontinued Medications Bupivacaine HCl (Marcaine 0.5%) Confirm Administered Dose 30 ml .ROUTE .STK-MED ONE Stop: 04/29/17 21:20 Cefazolin Sodium (Ancef) Confirm Administered Dose 2 gm .ROUTE .STK-MED ONE Stop: 04/29/17 21:45 Citric Acid/Sodium Citrate (Bicitra Solution) Confirm Administered Dose 30 ml .ROUTE .STK-MED ONE Stop: 04/29/17 20:52 Last Admin: 04/29/17 21:11 Dose: Not Given Citric Acid/Sodium Citrate (Bicitra Solution) 30 ml PO ONETIME ONE Stop: 04/29/17 20:59 Last Admin: 04/29/17 21:11 Dose: 30 ml Diphenhydramine HCl (Benadryl) 25 mg IVPUSH Q6H PRN PRN Reason: Pruritis Diphenhydramine HCl (Benadryl) 25 mg IVPUSH Q6H PRN PRN Reason: Pruritis Ephedrine Sulfate (Ephedrine Sulfate) 5 mg IVPUSH ASDIRECTED PRN PRN Reason: Hypotension Fentanyl (Sublimaze) 100 mcg EPIDUR Q3H PRN PRN Reason: Pain Last Admin: 04/29/17 11:25 Dose: 100 mcg Fentanyl (Sublimaze) 50 mcg IVPUSH Q5M PRN PRN Reason: Pain Stop: 04/29/17 22:44 Fentanyl/Bupivacaine HCl (Fentanyl/Bupivacaine/Ns 2 Mcg-0.125% 100 Ml) 100 ml EPIDUR ASDIRECTED [facility] Last Admin: 04/29/17 11:26 Dose: 100 ml Lactated Ringer's (Ringers, Lactated) 1,000 mls @ 100 mls/hr IV ASDIRECTED [facility] Last Admin: 04/29/17 20:10 Dose: 100 mls/hr Oxytocin/Lactated Ringer's (Pitocin In Lr 10 Units/1,000 Ml) 10 unit in 1,000 mls @ 500 mls/hr IV .CONTINUOUS [facility] Oxytocin/Lactated Ringer's (Pitocin In Lr 10 Units/1,000 Ml) 10 unit in 1,000 mls @ 12 mls/hr IV TITRATE [facility]; 2 MUNITS/MIN PRN Reason: Protocol Last Titration: 04/29/17 20:52 Dose: 0 munits/min, 0 mls/hr Cefazolin Sodium/Dextrose 2 gm (/ Premix) 50 mls @ 100 mls/hr IV ONETIME ONE Stop: 04/29/17 21:27 Last Admin: 04/30/17 19:46 Dose: Not Given Lactated Ringer's (Ringers, Lactated) Confirm Administered Dose 1,000 mls @ as directed .ROUTE .STK-MED ONE Stop: 04/29/17 21:19 Dextrose/Lactated Ringer's (Dextrose 5%-Lactated Ringers) 1,000 mls @ 125 mls/ hr IV ASDIRECTED [facility] Stop: 04/30/17 07:35 Last Admin: 04/30/17 00:44 Dose: 125 mls/hr Ketorolac Tromethamine (Toradol) Confirm Administered Dose 30 mg .ROUTE .STK- MED ONE Stop: 04/29/17 21:59 Ketorolac Tromethamine (Toradol) 30 mg IVPUSH Q6H [facility] Stop: 04/30/17 16:01 Last Admin: 04/30/17 15:55 Dose: 30 mg Lidocaine/Epinephrine (Xylocaine-Mpf 2%-Epi 1:200,000) Confirm Administered Dose 20 ml .ROUTE .STK-MED ONE Stop: 04/29/17 21:14 Meperidine HCl (Demerol) Confirm Administered Dose 50 mg .ROUTE .STK-MED ONE Stop: 04/29/17 22:05 Metoclopramide HCl (Reglan) Confirm Administered Dose 10 mg .ROUTE .STK-MED ONE Stop: 04/29/17 20:52 Last Admin: 04/29/17 21:11 Dose: Not Given Metoclopramide HCl (Reglan) 10 mg IVPUSH ONETIME ONE Stop: 04/29/17 20:59 Last Admin: 04/29/17 21:11 Dose: 10 mg Morphine Sulfate (Duramorph Pf) Confirm Administered Dose 10 mg .ROUTE .STK-MED ONE Stop: 04/29/17 21:19 Nalbuphine HCl (Nubain) 10 mg IVPUSH Q2H PRN PRN Reason: Pain (moderate 4-6) Ondansetron HCl (Zofran) 4 mg IVPUSH ONETIME PRN PRN Reason: Nausea/Vomiting Ondansetron HCl (Zofran) Confirm Administered Dose 4 mg .ROUTE .STK-MED ONE Stop: 04/29/17 21:14 Ondansetron HCl (Zofran) Confirm Administered Dose 4 mg .ROUTE .STK-MED ONE Stop: 04/29/17 21:19 Ondansetron HCl (Zofran) Confirm Administered Dose 4 mg .ROUTE .STK-MED ONE Stop: 04/29/17 21:19 Ondansetron HCl (Zofran) 4 mg IVPUSH ONETIME PRN PRN Reason: Nausea/Vomiting Oxytocin (Pitocin) Confirm Administered Dose 10 unit .ROUTE .STK-MED ONE Stop: 04/29/17 21:14 Oxytocin (Pitocin) Confirm Administered Dose 10 unit .ROUTE .STK-MED ONE Stop: 04/29/17 21:19 Oxytocin (Pitocin) Confirm Administered Dose 10 unit .ROUTE .STK-MED ONE Stop: 04/29/17 21:19 Sodium Bicarbonate (Sodium Bicarbonate 8.4%) Confirm Administered Dose 50 meq .ROUTE .STK-MED ONE Stop: 04/29/17 21:14 Sodium Chloride (Saline Flush) 10 ml FLUSH ASDIRECTED PRN PRN Reason: Keep Vein Open - Infant Interaction Infant Disposition, : [place] in Room with Family Infant Interaction: Holding Infant Infant Feeding: Bottle Fed Infant Support Person: , Mother - Recovery Exam Fundal Tone: Firm Fundal Level: 1 Fingerbreadths Below Umbilicus Fundal Placement: Midline Lochia Amount: Small Lochia Color: Rubra/Red Perineum Description: Intact, Minimal Bruising/Swelling Bladder Status: Voiding Urinary Elimination: Voided - Exam General: Alert, Oriented, Cooperative Lungs: Clear to Auscultation, Normal Respiratory Effort Cardiovascular: Regular Rate, Regular Rhythm GI/Abdominal Exam: Soft, Tender (appropriate post op ) Extremities: Normal Inspection Skin: Warm, Dry, Intact Wound/Incisions: Healing Well, No Drainage - Problem List & Annotations (1) 39 weeks gestation of SNOMED Code(s): 73344689 Code(s): Z3A.39 - 39 WEEKS GESTATION OF Status: Acute Current Visit: Yes (2) SROM (spontaneous rupture of membranes) SNOMED Code(s): 234385823 Code(s): MYY6423 - Status: Acute Current Visit: Yes (3) Depression with anxiety SNOMED Code(s): 014427844 Code(s): F41.8 - OTHER SPECIFIED ANXIETY DISORDERS Status: Acute Current Visit: Yes - Problem List Review Problem List Initiated/Reviewed/Updated: Yes - My Orders Last 24 Hours: My Active Orders 04/30/17 09:00 Patient's Own Medication [Ptom] 0 each PO DAILY Patient's Own Medication [Ptom] 0 each PO DAILY 04/30/17 22:00 Ibuprofen [Motrin] 600 mg PO Q6H PRN 04/30/17 22:28 Urinary Catheter Removal [RC] Per Unit Routine - Assessment Assessment:: 26 y/o G1 now P1001 POD#2 from PLTCS for FTP in 2nd stage after spontaneous onset of labor at 39 wks - Plan Plan:: S/p PLTCS * Routine cares * Bottle feeding * Continue home Wellbutrin and Zoloft * Discharge home tomorrow
[2017-05-01] MEDS: SERTRALINE 100 MG PO SCH (08:19)
[2017-05-01] MEDS: BUPROPION HCL 300 MG PO SCH (08:19)
[2017-05-01 13:47] VITALS: BP 122/74
--- NOTE | 2017-05-01 16:58 | PCM.DCSUM1 ---
Discharge Summary - Discharge Data Discharge Date: 05/01/17 Discharge Disposition: Home, Self-Care 01 Condition: Good - Discharge Diagnosis/Problem(s) (1) 39 weeks gestation of SNOMED Code(s): 68707534 ICD Code: Z3A.39 - 39 WEEKS GESTATION OF Status: Acute (2) SROM (spontaneous rupture of membranes) SNOMED Code(s): 338786145 ICD Code: [id number] - Status: Acute (3) Depression with anxiety SNOMED Code(s): 246693141 ICD Code: F41.8 - OTHER SPECIFIED ANXIETY DISORDERS Status: Acute (4) Failure to progress in second stage of labor SNOMED Code(s): 114206945 ICD Code: O62.2 - OTHER UTERINE INERTIA Status: Acute (5) Failed vacuum extraction delivery SNOMED Code(s): 55162416 ICD Code: O61.1 - FAILED INSTRUMENTAL INDUCTION OF LABOR; O66.5 - ATTEMPTED APPLICATION OF VACUUM EXTRACTOR AND FORCEPS Status: Acute (6) S/P primary low transverse SNOMED Code(s): 491875577, 992525779, 288416494, 779966890 ICD Code: Z98.891 - HISTORY OF UTERINE SCAR FROM PREVIOUS SURGERY Status: Acute - Patient Summary/Data Operative Procedure(s) Performed: Primary Low Transverse Complications: None Consults: None Recommended Follow-up Testing/Procedures: Follow up in 1-2 weeks for check Hospital Course: 26 y/o at 39 0/7 wks who presented with SROM. She progressed well to complete dilation without the need for augmentation. Once complete she started pushing. At 2 hours of pushing pitocin was initiated to aid in deliver. At 3hr of pushing she became fatigued. Options reviewed and she did agree to trial of VAVD after review of risks/benefits. Unfortunately this was unsuccessful. See procedure note. She was then taken for PLTCS. See operative note. she did well and was meeting all goals by POD#2. She requested discharge home which was felt reasonable. - Patient Instructions Diet: Regular Diet as Tolerated Activity: No Lifting Over 10 Pounds (10-15 pounds) Driving: Do Not Drive (Do not drive while taking narcotics ) Showering/Bathing: May Shower, No Tub Bathing/Swimming Wound/Incision Care: Keep Operative Site/Wound Site Clean and Dry, Change Dressing Daily Notify Provider of: Fever, Increased Pain, Swelling and Redness, Drainage, Nausea and/or Vomiting - Discharge Plan Prescriptions/Med Rec: Acetaminophen/oxyCODONE [Percocet 325-5 MG] 2 tab PO Q4H PRN #30 tablet PRN Reason: Pain Home Medications: Home Meds PNV95/Ferrous Fumarate/FA [ Tablet] 04/29/17 [History] Sertraline [Zoloft] 150 mg PO DAILY 04/29/17 [History] buPROPion HCl [Wellbutrin Xl] 300 mg PO DAILY 04/29/17 [History] Acetaminophen/oxyCODONE [Percocet 325-5 MG] 2 tab PO Q4H PRN #30 tablet [Rx] Docusate Sodium [Colace] 100 mg PO Q12H PRN #0 cap 05/01/17 [Rx] Ibuprofen [IJD: Ibuprofen] 600 mg PO Q6H PRN #0 tablet 05/01/17 [Rx] Patient Handouts: Delivery, Care After Referrals: Iman Cherry MD [Physician] - (1-2 weeks for incision check ) - Discharge Summary/Plan Comment DC Time >30 min.: No - Patient Data Vitals - Most Recent: Last Vital Signs Temp 36.4 C 05/01/17 12:00 Pulse 102 H 05/01/17 12:00 Resp 18 05/01/17 12:00 BP 122/74 05/01/17 12:00 Pulse Ox 96 05/01/17 12:00 Weight - Most Recent: 84.368 kg I&O - Last 24 hours: Intake & Output 05/01/17 05/01/17 05/01/17 06:59 14:59 22:59 Intake Total 240 0 Balance 240 0 Med Orders - Current: Current Medications Diphenhydramine HCl (Benadryl) 25 mg IVPUSH Q6H PRN PRN Reason: Itching or Nausea Last Admin: 04/30/17 02:09 Dose: 25 mg Docusate Sodium (Colace) 100 mg PO Q12H PRN PRN Reason: Constipation Emollient Ointment (Lansinoh Hpa) 0 gm TOP ASDIRECTED PRN PRN Reason: Sore Nipples Ibuprofen (Motrin) 600 mg PO Q6H PRN PRN Reason: mild pain or fever Last Admin: 05/01/17 11:10 Dose: 600 mg Ondansetron HCl (Zofran) 4 mg IV Q8H PRN PRN Reason: Nausea/Vomiting Oxycodone/Acetaminophen (Percocet 325-5 Mg) 2 tab PO Q4H PRN PRN Reason: Pain (moderate 4-6) Last Admin: 05/01/17 14:56 Dose: 2 tab Sertraline 100 Mg (Tablets) 0 each PO DAILY [facility] Last Admin: 05/01/17 08:19 Dose: 1.5 each Bupropion Hcl Xl 300 (Mg Tablets) 0 each PO DAILY [facility] Last Admin: 05/01/17 08:19 Dose: 1 each Discontinued Medications Bupivacaine HCl (Marcaine 0.5%) Confirm Administered Dose 30 ml .ROUTE .STK-MED ONE Stop: 04/29/17 21:20 Bupivacaine HCl (Sensorcaine-Mpf 0.25%) 10 ml .ROUTE .STK-MED ONE Stop: 04/29/17 10:46 Cefazolin Sodium (Ancef) Confirm Administered Dose 2 gm .ROUTE .STK-MED ONE Stop: 04/29/17 21:45 Citric Acid/Sodium Citrate (Bicitra Solution) Confirm Administered Dose 30 ml .ROUTE .STK-MED ONE Stop: 04/29/17 20:52 Last Admin: 04/29/17 21:11 Dose: Not Given Citric Acid/Sodium Citrate (Bicitra Solution) 30 ml PO ONETIME ONE Stop: 04/29/17 20:59 Last Admin: 04/29/17 21:11 Dose: 30 ml Diphenhydramine HCl (Benadryl) 25 mg IVPUSH Q6H PRN PRN Reason: Pruritis Diphenhydramine HCl (Benadryl) 25 mg IVPUSH Q6H PRN PRN Reason: Pruritis Ephedrine Sulfate (Ephedrine Sulfate) 5 mg IVPUSH ASDIRECTED PRN PRN Reason: Hypotension Fentanyl (Sublimaze) 100 mcg EPIDUR Q3H PRN PRN Reason: Pain Last Admin: 04/29/17 11:25 Dose: 100 mcg Fentanyl (Sublimaze) 50 mcg IVPUSH Q5M PRN PRN Reason: Pain Stop: 04/29/17 22:44 Fentanyl/Bupivacaine HCl (Fentanyl/Bupivacaine/Ns 2 Mcg-0.125% 100 Ml) 100 ml EPIDUR ASDIRECTED [facility] Last Admin: 04/29/17 11:26 Dose: 100 ml Lactated Ringer's (Ringers, Lactated) 1,000 mls @ 100 mls/hr IV ASDIRECTED [facility] Last Admin: 04/29/17 20:10 Dose: 100 mls/hr Oxytocin/Lactated Ringer's (Pitocin In Lr 10 Units/1,000 Ml) 10 unit in 1,000 mls @ 500 mls/hr IV .CONTINUOUS CHELSEY Oxytocin/Lactated Ringer's (Pitocin In Lr 10 Units/1,000 Ml) 10 unit in 1,000 mls @ 12 mls/hr IV TITRATE CHELSEY; 2 MUNITS/MIN PRN Reason: Protocol Last Titration: 04/29/17 20:52 Dose: 0 munits/min, 0 mls/hr Cefazolin Sodium/Dextrose 2 gm (/ Premix) 50 mls @ 100 mls/hr IV ONETIME ONE Stop: 04/29/17 21:27 Last Admin: 04/30/17 19:46 Dose: Not Given Lactated Ringer's (Ringers, Lactated) Confirm Administered Dose 1,000 mls @ as directed .ROUTE .STK-MED ONE Stop: 04/29/17 21:19 Dextrose/Lactated Ringer's (Dextrose 5%-Lactated Ringers) 1,000 mls @ 125 mls/ hr IV ASDIRECTED [facility] Stop: 04/30/17 07:35 Last Admin: 04/30/17 00:44 Dose: 125 mls/hr Ketorolac Tromethamine (Toradol) Confirm Administered Dose 30 mg .ROUTE .STK- MED ONE Stop: 04/29/17 21:59 Ketorolac Tromethamine (Toradol) 30 mg IVPUSH Q6H [facility] Stop: 04/30/17 16:01 Last Admin: 04/30/17 15:55 Dose: 30 mg Lidocaine/Epinephrine (Xylocaine-Mpf 2%-Epi 1:200,000) Confirm Administered Dose 20 ml .ROUTE .STK-MED ONE Stop: 04/29/17 21:14 Meperidine HCl (Demerol) Confirm Administered Dose 50 mg .ROUTE .STK-MED ONE Stop: 04/29/17 22:05 Metoclopramide HCl (Reglan) Confirm Administered Dose 10 mg .ROUTE .STK-MED ONE Stop: 04/29/17 20:52 Last Admin: 04/29/17 21:11 Dose: Not Given Metoclopramide HCl (Reglan) 10 mg IVPUSH ONETIME ONE Stop: 04/29/17 20:59 Last Admin: 04/29/17 21:11 Dose: 10 mg Morphine Sulfate (Duramorph Pf) Confirm Administered Dose 10 mg .ROUTE .STK-MED ONE Stop: 04/29/17 21:19 Nalbuphine HCl (Nubain) 10 mg IVPUSH Q2H PRN PRN Reason: Pain (moderate 4-6) Ondansetron HCl (Zofran) 4 mg IVPUSH ONETIME PRN PRN Reason: Nausea/Vomiting Ondansetron HCl (Zofran) Confirm Administered Dose 4 mg .ROUTE .STK-MED ONE Stop: 04/29/17 21:14 Ondansetron HCl (Zofran) Confirm Administered Dose 4 mg .ROUTE .STK-MED ONE Stop: 04/29/17 21:19 Ondansetron HCl (Zofran) Confirm Administered Dose 4 mg .ROUTE .STK-MED ONE Stop: 04/29/17 21:19 Ondansetron HCl (Zofran) 4 mg IVPUSH ONETIME PRN PRN Reason: Nausea/Vomiting Oxytocin (Pitocin) Confirm Administered Dose 10 unit .ROUTE .STK-MED ONE Stop: 04/29/17 21:14 Oxytocin (Pitocin) Confirm Administered Dose 10 unit .ROUTE .STK-MED ONE Stop: 04/29/17 21:19 Oxytocin (Pitocin) Confirm Administered Dose 10 unit .ROUTE .STK-MED ONE Stop: 04/29/17 21:19 Sodium Bicarbonate (Sodium Bicarbonate 8.4%) Confirm Administered Dose 50 meq .ROUTE .STK-MED ONE Stop: 04/29/17 21:14 Sodium Chloride (Saline Flush) 10 ml FLUSH ASDIRECTED PRN PRN Reason: Keep Vein Open *Q Meaningful Use (DIS) - VTE *Q VTE Criteria *Q: - Stroke *Q Stroke Criteria *Q: - AMI *Q AMI Criteria *Q:
== END 2017-05-01 17:35 | disposition home or self-care (01) | DRG 540 ==
LOC: JD.OBCHECK 04:09 → JD.OB 04:18 → JD.OBCHECK 06:20 → JD.OB 06:21 → OBSVTOIN 21:37 → JD.OB 22:13
PROVIDERS: ADMIT Obstetrics & Gynecology; ATTEND Obstetrics & Gynecology
PROC: 10D00Z1 Extraction of Products of Conception, Low, Open Approach (ICD-10-PCS; principal; 2017-04-29)
PROC: 10D07Z6 Extraction of Products of Conception, Vacuum, Via Natural or Artificial Opening (ICD-10-PCS; 2017-04-29)
PROC: 00HU33Z Insertion of Infusion Device into Spinal Canal, Percutaneous Approach (ICD-10-PCS; 2017-04-29)
PROC: 3E0R3CZ (ICD-10-PCS; 2017-04-29)
DX: O42.02 Full-term premature rupture of membranes, onset of labor within 24 hours of rupture (principal); O99.344 Other mental disorders complicating childbirth; F41.8 Other specified anxiety disorders; O62.0 Primary inadequate contractions; O66.5 Attempted application of vacuum extractor and forceps; Z3A.39 39 weeks gestation of pregnancy; Z37.0 Single live birth; Z79.899 Other long term (current) drug therapy
CPT/HCPCS: 01967; 01968; 36415; 85025; 85027; 86850; 86900; 86901; A9270-GY; J0690; J1200; J1885; J2175; J2270; J2405; J2590; J2765; J3010; J7042; J7120

== ENCOUNTER 2020-08-09 08:00 | Inpatient (IN) | payer BC ==
--- NOTE | 2020-08-31 17:13 | PCM.LDHP ---
L&D History of Present Illness - General Date of Service: 08/31/20 Admit Problem/Dx: Admission Diagnosis/Problem Admission Diagnosis/Problem Source of Information: Patient History Limitations: Reports: No Limitations - History of Present Illness Introduction:: Julienne Mendenhall is a 30-year-old -0-0-1 at 38 weeks 3 days (NETTE 09/11/2020) who is scheduled for repeat section on 09/08/2020 when she will be 39 weeks 4 days. She was seen in the clinic on 08/31/2020 and was doing well at that time. She was having some [place] contractions with several per hour. She noted just tightening with these contractions. She denied any leaking of fluid or vaginal bleeding. She reported good movement. Timing/Duration: Reports: intermittent Location, : Reports: Abdomen, Uterus Quality: Reports: Pressure Severity: Mild Worsens with: Reports: None Associated Symptoms: Denies: vaginal bleeding, vaginal discharge, vaginal fluid Present Illness Comments:: Julienne Mendenhall is a 30-year-old -0-0-1 at 38 weeks 3 days (NETTE 09/11/2020) who presents for scheduled section on 09/08/2020. She has had routine care with myself, Dr. Long, starting at 12 weeks gestational age. She had routine care throughout the entirety of the . She received flu and Tdap shot on 06/23/2020. She had prequel genetic testing done in early that showed normal genetic testing. It was a female on testing. She had an elevated 1 hour glucose tolerance test with a normal 3- hour glucose tolerance test. Patient desired to have repeat section after a primary section in her first for failed vacuum extraction delivery. This is complicated by: * History of section for failed vacuum assisted vaginal delivery. Patient desires to have repeat section and does not desire a trial of labor after section. * Elevated 1 hour glucose tolerance test with a normal 3-hour glucose tolerance test. * Gastroesophageal reflux disease and has been using Tagamet more frequently towards the end of the . * History of anxiety and depression and stopped her Wellbutrin when she found out she was [employer] PAR[employer] history -0-0-1 G1: 04/29/2017, male , 39 weeks, 6 pounds 15 ounces, section for failed vacuum delivery, epidural for anesthesia G2: Current labs Blood type: A+ Antibody screen: Negative First trimester hematocrit/hemoglobin: 41.9%/14.1 on 01/05/2020 Platelets: 370 on 01/05/2020 Pap smear: Negative on 02/29/2020 Urine culture: Mixed jaxson suggestive of contamination Rubella status: Immune Hepatitis B surface antigen: Negative RPR: Negative HIV: Negative Gonorrhea: Negative Chlamydia: Negative Genetic testing: Normal [place] genetic testing with low risk for chromosomal abnormalities. Female on testing. Anatomy ultrasound: Normal anatomy, no abnormalities, posterior placenta, no previa, 73rd percentile on most recent ultrasound on 06/02/2020 One hour glucose tolerance test: 138 Second trimester hematocrit/hemoglobin: 37.2%/12.09 1020 Platelets: 271 on 06/02/2020 3-hour glucose tolerance test: Fasting 84, 1 hour 146, 2-hour 126 and 3-hour 80 Third trimester hematocrit/hemoglobin: 36.7%/11.9 on 08/04/2020 Platelets: 250 on 08/04/2020 GBS status: Negative - Related Data Allergies/Adverse Reactions: Allergies Allergy/AdvReac Type Severity Reaction Status Date / Time No Known Allergies Allergy Verified 04/29/17 06:52 Home Medications: Home Meds Pnv No.95/Ferrous Fum/Folic AC [ Tablet] 04/29/17 [History] Sertraline [Zoloft] 150 mg PO DAILY 04/29/17 [History] buPROPion HCL [Wellbutrin Xl] 300 mg PO DAILY 04/29/17 [History] Acetaminophen/oxyCODONE [Percocet 325-5 MG] 2 tab PO Q4H PRN #30 tablet 05/01/17 [Rx] Docusate Sodium [Colace] 100 mg PO Q12H PRN #0 cap 05/01/17 [Rx] Ibuprofen [IJD: Ibuprofen] 600 mg PO Q6H PRN #0 tablet 05/01/17 [Rx] Past Medical History [employer] PARENT History: Reports: : 2 Para: 1 Psychiatric History: Reports: Anxiety, Depression Other Psychiatric History: Takes Zoloft and Wellbutrin daily. S/s are well controlled at this time. - Past Surgical History HEENT Surgical History: Reports: Oral Surgery Other HEENT Surgeries/Procedures: [place] teeth pulled 2006 Female Surgical History: Reports: Section (2017) Social & Family History - Family History Family Medical History: No Pertinent Family History - Tobacco Use Tobacco Use Status *Q: Never Tobacco User Tobacco Use Within Last Twelve Months: No - Tobacco Core Measures Tobacco Use/Smoking Within Last 30 Days: No Smokeless Tobacco Use in Last 30 Days: No - Caffeine Use Caffeine Use: Reports: None - Alcohol Use Alcohol Use History: No - Recreational Drug Use Recreational Drug Use: No Drug Use in Last 12 Months: No - Living Situation & Occupation Living situation: Reports: , with Spouse, with Family Occupation: Employed H&P Review of Systems - Review of Systems: Review Of Systems: See Below General: Denies: Fever, Chills, Malaise, Weakness, Fatigue HEENT: Denies: Dysphasia, Headaches, Rhinitis, Post Nasal Drip, Sinus Congestion, Sore Throat, Visual Changes Pulmonary: Denies: Shortness of Breath, Wheezing, Pleuritic Chest Pain, Cough Cardiovascular: Denies: Chest Pain, Palpitations, Dyspnea on Exertion, Orthopnea Gastrointestinal: Reports: Other (Acid reflux). Denies: Abdominal Pain, Constipation, Diarrhea, Nausea, Vomiting Genitourinary: Denies: Dysuria, Frequency, Burning, Pain, Urgency Musculoskeletal: Reports: Back Pain (and hip pain of ) Skin: Denies: Rash, Lesions Psychiatric: Reports: Anxiety. Denies: Depression Neurological: Denies: Dizziness, Syncope L&D Exam - Exam Exam: See Below - Vital Signs Vital Signs: BP: 126/68 Weight: 78.925 kg - OB Specific Fundal Height In cm: 38 Movement: Active Heart Tones: Present Heart Tones per Min: 115 - Exam General: Alert, Oriented HEENT: Conjunctiva Clear, EOMI Neck: Supple, Trachea Midline Lungs: Clear to Auscultation, Normal Respiratory Effort Cardiovascular: Regular Rate, Regular Rhythm GI/Abdominal Exam: Soft, Non-Tender, No Distention, Other (Gravid). No: Guarding, Rigid, Rebound, Tender Extremities: Normal Inspection, No Pedal Edema Skin: Warm, Dry, Intact Psychiatric: Alert, Normal Affect, Normal Mood - Problem List (1) Abnormal glucose tolerance test (GTT) during , antepartum Status: Acute (2) History of delivery SNOMED Code(s): 762130523 ICD Code: Z98.891 - HISTORY OF UTERINE SCAR FROM PREVIOUS SURGERY Status: Acute (3) History of delivery affecting SNOMED Code(s): 087848037, 876335941 ICD Code: O34.219 - MATERNAL CARE FOR UNSP TYPE SCAR FROM PREVIOUS DEL Status: Acute (4) 39 weeks gestation of SNOMED Code(s): 90299146 ICD Code: Z3A.39 - 39 WEEKS GESTATION OF Status: Acute (5) Depression with anxiety SNOMED Code(s): 571848467 ICD Code: F41.8 - OTHER SPECIFIED ANXIETY DISORDERS Status: Acute Problem List Initiated/Reviewed/Updated: Yes Assessment/Plan Comment:: Julienne Mendenhall is a 30-year-old -0-0-1 female at 38 weeks 3 days (NETTE 09/11/2020) who is scheduled for repeat section on 09/08/2020 when she will be 39 weeks 4 days with a that is complicated by history of section and desires repeat section, gastroesophageal reflux disease in , anxiety and depression and elevated 1 hour glucose tolerance test with normal 3-hour glucose tolerance test Admit to inpatient after section NST prior to section Place IV and have Lactated Ringer's at 125 ml/hr SCDs for DVT prophylaxis Nothing by mouth Activity as tolerated Plan for spinal injection for anesthesia Patient had a COVID-19 swab collected on 09/05/2020 CBC, RPR and type and screen prior to surgery Plans to breast-feed after delivery Plan for Ancef 2 g IV for antibiotic prophylaxis prior to surgery Fritz Long M.D. 5:19 PM 08/31/2020
[2020-09-08] MEDS ORDERED: ceFAZolin 2 GM in Premix Bag 1 BAG IV ONE (03:45)
[2020-09-08] MEDS ORDERED: Sodium Chloride 0.9% 10 ML Syringe FLUSH PRN (03:45)
[2020-09-08] MEDS ORDERED: Oxytocin/Lactated Ringers 10 UNIT/1,000 ML BAG IV SCH ×2 (03:45→09:48)
[2020-09-08] MEDS: Lactated Ringers 1,000 ML IV SCH ×2 (05:56→07:17)
[2020-09-08] MEDS ORDERED: Metoclopramide 10 MG/2 ML SDV IVPUSH ONE (06:30)
[2020-09-08] MEDS ORDERED: Citric Acid/Sodium Citrate Solution 30 ML Cup PO ONE (06:30)
[2020-09-08] MEDS ORDERED: Oxytocin 10 Units/1 ML SDV ONE ×2 (06:49→08:27)
[2020-09-08] MEDS ORDERED: Morphine PF 10 MG/10 ML SDV ONE (06:49)
[2020-09-08] MEDS ORDERED: fentaNYL 100 MCG/2 ML SDV ONE (06:49)
[2020-09-08] MEDS ORDERED: ceFAZolin 1 GM Vial ONE (06:50)
[2020-09-08] MEDS ORDERED: Bupivacaine 0.5% 30 ML SDV ONE (07:08)
[2020-09-08] MEDS ORDERED: Metoclopramide 10 MG/2 ML SDV ONE (07:10)
[2020-09-08] MEDS ORDERED: Citric Acid/Sodium Citrate Solution 30 ML Cup ONE (07:11)
--- NOTE | 2020-09-08 07:14 | PCM.PREANE ---
Preanesthetic Assessment - Procedure Proposed Procedure: Repeat section - Anesthesia/Transfusion/Family Hx Anesthesia History: Prior Anesthesia Reaction Transfusion History: No Prior Transfusion(s) - Review of Systems General: No Symptoms Pulmonary: No Symptoms Cardiovascular: No Symptoms Gastrointestinal: No Symptoms Neurological: No Symptoms Other: Reports: Depression - Physical Assessment NPO Status Date: 09/07/20 NPO Status Time: 19:00 Vital Signs: Last Vital Signs Temp 98.4 F 09/08/20 05:44 Pulse 107 H 09/08/20 05:44 Resp 16 09/08/20 05:44 BP 136/81 09/08/20 05:44 Pulse Ox 98 09/08/20 05:44 Height: 1.6 m Weight: 79.923 kg ASA Class: 2 Mental Status: Alert & Oriented x3 Airway Class: Mallampati = 1 Dentition: Reports: Normal Dentition Thyro-Mental Finger Breadths: 3 Mouth Opening Finger Breadths: 3 ROM/Head Extension: Full Lungs: Clear to Auscultation, Normal Respiratory Effort Cardiovascular: Regular Rate, Regular Rhythm - Lab Values: Laboratory Last Values WBC 8.03 K/mm3 (3.98-10.04) 09/08/20 06:17 RBC 3.54 M/mm3 (3.98-5.22) L 09/08/20 06:17 Hgb 10.4 gm/dl (11.2-15.7) L D 09/08/20 06:17 Hct 32.4 % (34.1-44.9) L 09/08/20 06:17 MCV 91.5 fl (79.4-94.8) 09/08/20 06:17 MCH 29.4 pg (25.6-32.2) 09/08/20 06:17 MCHC 32.1 g/dl (32.2-35.5) L 09/08/20 06:17 RDW Std Deviation 40.8 fL (36.4-46.3) 09/08/20 06:17 Plt Count 219 K/mm3 (182-369) 09/08/20 06:17 MPV 9.5 fl (9.4-12.3) 09/08/20 06:17 Neut % (Auto) 66.0 % (34.0-71.1) 09/08/20 06:17 Lymph % (Auto) 21.0 % (19.3-51.7) 09/08/20 06:17 [place] % (Auto) 10.3 % (4.7-12.5) 09/08/20 06:17 Eos % (Auto) 1.9 (0.7-5.8) 09/08/20 06:17 Baso % (Auto) 0.4 % (0.1-1.2) 09/08/20 06:17 Neut # (Auto) 5.30 K/mm3 (1.56-6.13) 09/08/20 06:17 Lymph # (Auto) 1.69 K/mm3 (1.18-3.74) 09/08/20 06:17 [place] # (Auto) 0.83 K/mm3 (0.24-0.36) H 09/08/20 06:17 Eos # (Auto) 0.15 K/mm3 (0.04-0.36) 09/08/20 06:17 Baso # (Auto) 0.03 K/mm3 (0.01-0.08) 09/08/20 06:17 - Allergies Allergies/Adverse Reactions: Allergies Allergy/AdvReac Type Severity Reaction Status Date / Time No Known Allergies Allergy Verified 09/07/20 10:29 - Acknowledgements Anesthesia Type Planned: Spinal Pt an Appropriate Candidate for the Planned Anesthesia: Yes Alternatives and Risks of Anesthesia Discussed w Pt/Guardian: Yes Pt/Guardian Understands and Agrees with Anesthesia Plan: Yes PreAnesthesia Questionnaire [employer] History: Reports: Other OB/BYN History: PC/S 04/29/2017 for malpresentation Psychiatric History: Reports: Anxiety, Depression Other Psychiatric History: Takes Zoloft and Wellbutrin daily. S/s are well controlled at this time. - Past Surgical History HEENT Surgical History: Reports: Oral Surgery Other HEENT Surgeries/Procedures: [place] teeth pulled 2005 Female Surgical History: Reports: Section Other Female Surgeries/Procedures: C/S 2016 - SUBSTANCE USE Tobacco Use Status *Q: Never Tobacco User Tobacco Use Within Last Twelve Months: No Second Hand Smoke Exposure: No Recreational Drug Use History: No - HOME MEDS Home Medications: Home Meds Pnv No.95/Ferrous Fum/Folic AC [ Tablet] 1 tab PO DAILY 04/29/17 [History] - CURRENT (IN HOUSE) MEDS Current Meds: Current Medications Oxytocin/Lactated Ringer's (Pitocin In Lr 10 Units/1,000 Ml) 10 unit in 1,000 mls @ 100 mls/hr IV ASDIRECTED CHELSEY Lactated Ringer's (Ringers, Lactated) 1,000 mls @ 125 mls/hr IV ASDIRECTED CHELSEY Last Admin: 09/08/20 05:56 Dose: 125 mls/hr Documented by: Sodium Chloride (Saline Flush) 10 ml FLUSH ASDIRECTED PRN PRN Reason: Keep Vein Open Discontinued Medications Cefazolin Sodium (Ancef) Confirm Administered Dose 2 gm .ROUTE .STK-MED ONE Stop: 09/08/20 06:51 Citric Acid/Sodium Citrate (Bicitra Solution) 30 ml PO ONETIME ONE Stop: 09/08/20 06:31 Fentanyl (Sublimaze) Confirm Administered Dose 100 mcg .ROUTE .STK-MED ONE Stop: 09/08/20 06:50 Cefazolin Sodium/Dextrose 2 gm (/ Premix) 50 mls @ 100 mls/hr IV ONETIME ONE Stop: 09/08/20 04:14 Metoclopramide HCl (Reglan) 10 mg IVPUSH ONETIME ONE Stop: 09/08/20 06:31 Morphine Sulfate (Duramorph Pf) Confirm Administered Dose 10 mg .ROUTE .STK-MED ONE Stop: 09/08/20 06:50 Oxytocin (Pitocin) Confirm Administered Dose 20 unit .ROUTE .STK-MED ONE Stop: 09/08/20 06:50
[2020-09-08] MEDS ORDERED: ePHEDrine 50 MG/ML SDV ONE (08:03)
[2020-09-08] MEDS ORDERED: Lactated Ringers 1,000 ML ONE ×2 (08:13→08:30)
[2020-09-08] MEDS ORDERED: fentaNYL 100 MCG/2 ML SDV IVPUSH PRN (08:19)
[2020-09-08] MEDS ORDERED: diphenhydrAMINE 50 MG/ML SDV IVPUSH PRN ×2 (08:19→09:48)
[2020-09-08] MEDS ORDERED: Ondansetron 4 MG/2 ML SDV IVPUSH PRN (08:19)
[2020-09-08] MEDS ORDERED: Ketorolac 30 MG/ML SDV ONE (08:38)
--- NOTE | 2020-09-08 09:17 | PCM.OPNOTE ---
- General Post-Op/Procedure Note Date of Surgery/Procedure: 09/08/20 Operative Procedure(s): Repeat section with low transverse uterine incision with double layer closure Findings: Live female delivered in vertex presentation on 09/08/2020 at 8:13 AM. weight of 3570 g (7 pounds 13.9 ounces). Apgars of 8 and 9. Closely normal-appearing uterus and bilateral tubes and ovaries. Pre Op Diagnosis: 39 weeks gestational age, history of section and desires repeat section Post-Op Diagnosis: Same Anesthesia Technique: Spinal Primary Surgeon: Fritz Long Anesthesia Provider: Moiz aGlarza Production Operator: Maynor Guerrier Reason Production Operator Was Necessary: Patient safety and reduction of morbidity and mortality Role of Production Operator: Retraction for visualization Pathology: None Fluid Replacement, Intraop: 2,100 Output, Urine Amount: 150 EBL in mLs: 500 Complications: None Condition: Good Free Text/Narrative:: Intake & Output 09/07/20 09/08/20 09/08/20 22:59 06:59 14:59 Output Total 150 Balance -150 Procedure in Detail: The patient was seen in room #4 and the risks, benefits and complications were discussed with the patient. The patient desired to proceed with section and appropriate consents were reviewed. The patient was taken to operating room #1. A Time Out was held and the patient was identified using 2 identifiers and the procedure was confirmed. The patient was given spinal anesthesia and was placed in dorsal supine position with leftward tilt. She was given 2 g Ancef for antibiotic prophylaxis. A Hatfield catheter was inserted without difficulty. The patient was prepped and draped in the usual sterile manner. The abdominal skin was tested and the spinal anesthesia was found to be adequate. The skin was injected with 0.5% marcaine for local anesthesia. A Pfannenstiel skin incision was made and carried down through the subcutaneous tissue to the fascia with the scapel. The fascia was nicked in the midline using a scalpel and the fascial incision was extended transversely with Beltre scissors. The inferior aspect of the fascia was grasped with Amy clamps and tented upwards. The fascia was from the underlying rectus muscle bluntly and sharply with Beltre scissors. Attention was then turned to the superior aspect of the fascia and was grasped using Amy clamps and tented upwards. The underlying rectus muscle was dissected off bluntly and sharply with Beltre scissors. The peritoneum was identified and entered bluntly. The utero-vesical peritoneal reflection was identified and the peritoneum was incised with [place] scissors and transversely extended. The bladder blade was inserted and the lower uterine segment was identified. A low transverse uterine incision was made sharply with a scalpel and extended laterally bluntly. The 's head was brought to the uterine incision, the bladder blade was removed and the was delivered atraumatically. On 09/08/2020 a live female was delivered in vertex position at 08:13, wt of 3570 grams, 7 pounds and 13.9 ounces. APGARS were 8 & 9. The nose and mouth were suctioned with bulb suction, the cord was doubly clamped and cut and was transferred to the awaiting certified control systems technician. The placenta was removed intact and appeared normal with a three vessel cord. The uterus was exteriorized and the uterine cavity was cleaned using lap sponges. The hysterotomy was closed with a running locked suture of 0-Vicryl. A second suture of 0-Vicryl was used to imbricate the hysterotomy. The hysterotomy was hemostatic. The uterus, tubes and ovaries appeared overall normal. The uterus was then returned into the abdominal cavity. The hysterotomy was noted to remain hemostatic inside the abdominal cavity. The fascia was noted to be hemostatic and the fascia was then reapproximated with running sutures of 0-Vicryl. The skin was reapproximated using 4-0 Monocryl and Steri-strips were applied over the incision. Instrument, sponge, and needle counts were correct prior to the abdominal closure and at the conclusion of the case. Fritz Long MD 9:14 AM 09/08/2020
[2020-09-08] MEDS ORDERED: ePHEDrine 50 MG/ML SDV IVPUSH PRN (09:48)
[2020-09-08] MEDS ORDERED: Dextrose 5%-Lactated Ringers 1,000 ML IV SCH (09:48)
[2020-09-08] MEDS ORDERED: Naloxone 0.4 MG/ML SDV IVPUSH PRN (09:48)
[2020-09-08] MEDS ORDERED: Acetaminophen/oxyCODONE 325-5 MG Tab PO PRN (09:48)
[2020-09-08] MEDS: Docusate Sodium 100 MG Cap PO SCH ×3 (10:57→20:21)
[2020-09-08] MEDS: Ketorolac 30 MG/ML SDV IVPUSH SCH ×2 (14:59→20:20)
[2020-09-08] MEDS ORDERED: Magnesium Hydroxide 400 MG/5 ML Susp 30 ML Cup PO PRN (21:00)
[2020-09-08] MEDS: Acetaminophen/oxyCODONE 325-5 MG Tab PO PRN (23:54)
[2020-09-09] MEDS: Simethicone 80 MG Tab.Chew PO PRN ×4 (00:28→18:11)
[2020-09-09] MEDS: Ketorolac 30 MG/ML SDV IVPUSH SCH (02:53)
[2020-09-09] MEDS: Acetaminophen/oxyCODONE 325-5 MG Tab PO PRN (06:10)
[2020-09-09] MEDS ORDERED: Ferrous Sulfate 324 MG Tab.EC PO SCH (07:00)
--- NOTE | 2020-09-09 07:28 | PCM48HPAN ---
Post Anesthesia Note - EVALUATION WITHIN 48HRS OF ANESTHETIC Vital Signs in Normal Range: Yes Patient Participated in Evaluation: Yes Respiratory Function Stable: Yes Airway Patent: Yes Cardiovascular Function Stable: Yes Hydration Status Stable: Yes Pain Control Satisfactory: Yes Nausea and Vomiting Control Satisfactory: Yes Mental Status Recovered: Yes Vital Signs: Last Vital Signs Temp 36.3 C 09/08/20 15:04 Pulse 68 09/09/20 06:00 Resp 16 09/08/20 22:00 BP 112/73 09/09/20 02:58 Pulse Ox 98 09/09/20 06:00 - COMMENTS/OBSERVATIONS Free Text/Narrative:: no anesthesia complications noted
[2020-09-09] MEDS: Docusate Sodium 100 MG Cap PO SCH ×2 (08:47→21:05)
[2020-09-09] MEDS: Prenatal Multivitamin with Calcium/Folic Acid/Iron Tab PO SCH (08:47)
[2020-09-09] MEDS ORDERED: oxyCODONE 5 MG Tab PO PRN ×2 (08:52)
--- NOTE | 2020-09-09 09:03 | PCM.SN.2 ---
- Free Text/Narrative Note: Post Operative Progress Note POD #1 Subjective: Doing well overall. Ambulating without difficulty. Lochia minimal. Hatfield catheter removed this morning and has not voided since removal. Not passing flatus at this time and does feel increased amounts of gas pain in the abdomen and shoulders. Tolerating regular diet without nausea or vomiting. Pain controlled with oral medications. Bottlefeeding with minimal difficulty. Denies any milk production at this time. Objective: Vitals: Vital Signs - 8 hr 09/09/20 09/09/20 09/09/20 02:00 02:54 02:58 Pulse, 86 78 Peripheral Pulse, Peripheral [ Right Pulse Oximetry] Blood Pressure 112/73 O2 Sat by Pulse 98 97 98 Oximetry 09/09/20 09/09/20 09/09/20 04:00 05:00 06:00 Pulse, Peripheral Pulse, 90 68 Peripheral [ Right Pulse Oximetry] Blood Pressure O2 Sat by Pulse 98 98 98 Oximetry 09/09/20 07:00 Pulse, Peripheral Pulse, Peripheral [ Right Pulse Oximetry] Blood Pressure O2 Sat by Pulse 98 Oximetry Physical Exam General: Alert and oriented, no acute distress Lungs: Clear to auscultation bilaterally Heart: Regular rate and rhythm Abdomen: Soft, minimal appropriate tenderness, mild distention, positive bowel sounds, fundus midline, nontender and at the umbilicus Incision: Clean, dry and intact, no erythema, bleeding or drainage with Steri- Strips in place Extremities: No edema Labs: Laboratory Tests 09/08/20 09/08/20 09/08/20 Range/Units 06:17 06:17 06:17 WBC 8.03 (3.98-10.04) K/mm3 RBC 3.54 L (3.98-5.22) M/mm3 Hgb 10.4 L D (11.2-15.7) gm/dl Hct 32.4 L (34.1-44.9) % MCV 91.5 (79.4-94.8) fl MCH 29.4 (25.6-32.2) pg MCHC 32.1 L (32.2-35.5) g/dl RDW Std Deviation 40.8 (36.4-46.3) fL Plt Count 219 (182-369) K/mm3 MPV 9.5 (9.4-12.3) fl Neut % (Auto) 66.0 (34.0-71.1) % Lymph % (Auto) 21.0 (19.3-51.7) % [place] % (Auto) 10.3 (4.7-12.5) % Eos % (Auto) 1.9 (0.7-5.8) Baso % (Auto) 0.4 (0.1-1.2) % Neut # (Auto) 5.30 (1.56-6.13) K/mm3 Lymph # (Auto) 1.69 (1.18-3.74) K/mm3 [place] # (Auto) 0.83 H (0.24-0.36) K/mm3 Eos # (Auto) 0.15 (0.04-0.36) K/mm3 Baso # (Auto) 0.03 (0.01-0.08) K/mm3 RPR Non-reactive (NONREACTIVE) Blood Type A POSITIVE Gel Antibody Screen Negative 09/08/20 09/09/20 Range/Units 14:58 04:25 WBC 13.65 H 10.37 H (3.98-10.04) K/mm3 RBC 3.17 L 2.96 L (3.98-5.22) M/mm3 Hgb 9.3 L 8.7 L (11.2-15.7) gm/dl Hct 29.0 L 27.6 L (34.1-44.9) % MCV 91.5 93.2 (79.4-94.8) fl MCH 29.3 29.4 (25.6-32.2) pg MCHC 32.1 L 31.5 L (32.2-35.5) g/dl RDW Std Deviation 40.6 41.7 (36.4-46.3) fL Plt Count 188 172 L (182-369) K/mm3 MPV 9.2 L 9.6 (9.4-12.3) fl Neut % (Auto) 80.7 H 74.9 H (34.0-71.1) % Lymph % (Auto) 10.8 L 14.5 L (19.3-51.7) % [place] % (Auto) 7.8 9.2 (4.7-12.5) % Eos % (Auto) 0.3 L 1.1 (0.7-5.8) Baso % (Auto) 0.1 0.2 (0.1-1.2) % Neut # (Auto) 11.01 H 7.78 H (1.56-6.13) K/mm3 Lymph # (Auto) 1.47 1.50 (1.18-3.74) K/mm3 [place] # (Auto) 1.07 H 0.95 H (0.24-0.36) K/mm3 Eos # (Auto) 0.04 0.11 (0.04-0.36) K/mm3 Baso # (Auto) 0.02 0.02 (0.01-0.08) K/mm3 RPR (NONREACTIVE) Blood Type Gel Antibody Screen ASSESSMENT: 30-year-old female -0-0-2 s/p repeat section POD #1 for history of section after failed vacuum extractor delivery, complicated by history of section, elevated 1 hour glucose tolerance test, gastroesophageal re flux disease and history of anxiety and depression not on medication at this time PLAN: * Doing well * Bottlefeeding with minimal difficulty. Assist as needed. Patient not producing milk at this time. Patient given recommendations to try to reduce milk production as much as possible. * Incision healing well. Continue to keep clean and dry. * Lochia minimal. Continue to monitor for appropriate lochia. * Continue routine post-operative care * Encourage patient to ambulate to increase intestinal mobility. We will change patient's pain medication regimen to using ibuprofen and Tylenol with oxycodon e 5 to 10 mg as needed for pain. This is to try to reduce the amount of narcotic medication that she is using which may decrease intestinal mobility. Also encourage patient to chew gum as this has been beneficial for intestinal mobility. Patient can continue to use simethicone 80 mg every 6 hours as needed for gas pain. * Patient's hemoglobin dropped from 10.4 on admission down to 8 point 7 in the morning of POD #1. Patient is doing well at this time without any significant symptoms from this blood loss. Continue to monitor vitals closely. We will increase iron supplementation to 2 times daily with meals to try to help build RBC count back up. * Anticipate discharge home tomorrow Fritz Long MD 9:00 AM 09/09/2020
[2020-09-09] MEDS: Acetaminophen 325 MG Tab PO SCH ×2 (11:57→18:10)
[2020-09-09] MEDS: Ibuprofen 600 MG Tab PO PRN ×2 (15:29→21:47)
[2020-09-09] MEDS: Ferrous Sulfate 324 MG Tab.EC PO SCH (17:10)
[2020-09-10] MEDS: Simethicone 80 MG Tab.Chew PO PRN ×2 (03:20→09:13)
[2020-09-10] MEDS: Acetaminophen 325 MG Tab PO SCH ×3 (03:20→14:01)
[2020-09-10] MEDS: Ibuprofen 600 MG Tab PO PRN ×2 (05:13→12:30)
[2020-09-10] MEDS: Ferrous Sulfate 324 MG Tab.EC PO SCH (07:52)
[2020-09-10 08:06] VITALS: BP 128/73; PULSE 84
[2020-09-10] MEDS: Prenatal Multivitamin with Calcium/Folic Acid/Iron Tab PO SCH (09:14)
[2020-09-10] MEDS: Docusate Sodium 100 MG Cap PO SCH (09:14)
--- NOTE | 2020-09-10 09:42 | PCM.DCSUM1 ---
Discharge Summary - Hospital Course Free Text/Narrative:: Marjorie is a 30-year-old 2 now para 2-0-0-2 white female who was admitted on 09/08/2020 for elective repeat section. Please see admission history and physical for details. She underwent repeat section with delivery of a live female born in a vertex presentation on 09/08/2020 at 0813 hrs. weight was 3570 g (7 pounds 13.9 ounces). Apgars were 8 and 9. Findings at time of surgery consistent with normal term pregnan cy. Diagnosis was 39-week gestational age , history of previous section with desire for repeat section. Patient had spinal anesthetic. Hospital course: Patient was given Duramorph through the spinal block and this Provided her good relief for the first 20 to 24 hours after delivery. She was treated with ibuprofen and Percocet thereafter. She made good bowel, bladder and ambulatory activity. She has had vital signs which have remained within normal limits. She is afebrile. Follow-up CBC was within reasonable limits. She desires discharge home. She is bottlefeeding. Diagnosis: Stroke: No - Discharge Data Discharge Date: 09/10/20 Discharge Disposition: Home, Self-Care 01 Condition: Good - Referral to Home Health Primary Care Physician: Fritz Long MD - Patient Summary/Data Operative Procedure(s) Performed: Repeat section with low transverse uterine incision with double layer closure - Patient Instructions Diet: Regular Diet as Tolerated Activity: As Tolerated (Greater than 15 pounds or driving a car x7 to 10 days. No intercourse or tampons until seen back in clinic.) Driving: Do Not Drive Showering/Bathing: May Shower Notify Provider of: Fever, Increased Pain, Swelling and Redness, Nausea and/or Vomiting - Discharge Plan *PRESCRIPTION DRUG MONITORING PROGRAM REVIEWED*: Yes *COPY OF PRESCRIPTION DRUG MONITORING REPORT IN PATIENT JAYLIN: No Prescriptions/Med Rec: oxyCODONE 5 - 10 mg PO Q6H PRN #30 tablet PRN Reason: Pain Home Medications: Home Meds Pnv No.95/Ferrous Fum/Folic AC [ Tablet] 1 tab PO DAILY 04/29/17 [History] Acetaminophen [Tylenol] 650 mg PO Q6H tablet 09/09/20 [Rx] Docusate Sodium [Colace] 100 mg PO BID cap 09/09/20 [Rx] Ferrous Sulfate 324 mg PO BIDMEALS tab.ec 09/09/20 [Rx] Ibuprofen [Motrin] 600 mg PO Q6H PRN tablet 09/09/20 [Rx] Magnesium Hydroxide [Milk of Magnesia] 30 ml PO BEDTIME PRN cup 09/09/20 [Rx] Simethicone 80 mg PO Q6H PRN tab.chew 09/09/20 [Rx] oxyCODONE 5 - 10 mg PO Q6H PRN #30 tablet 09/09/20 [Rx] Referrals: Fritz Long MD [Primary Care Provider] - (Follow-up in 1 to 2 weeks for routine visit or earlier as needed.) - Discharge Summary/Plan Comment DC Time >30 min.: No Discharge Summary/Plan Comment: Discharge instructions: 1. Discharge home 2. Diet, activity and follow-up discussed with patient. Teen postoperative C- section instructions given to the patient. 3. Precautions given concern increased pain, bleeding, temperature, signs/symptoms of DVT/PE. 4. Medications per home medication was printed, discussed with and given to the patient. 5. Return to clinic-Dr. Long[facility] in 2 weeks. Diagnosis: 1. Term -delivered repeat section 2. History of previous section affecting pregnancydelivereddesire for repeat section Condition: Good - Patient Data Vitals - Most Recent: Last Vital Signs Temp 36.7 C 09/10/20 07:55 Pulse 84 09/10/20 07:55 Resp 16 09/10/20 07:55 BP 128/73 09/10/20 07:55 Pulse Ox 95 09/10/20 07:55 Weight - Most Recent: 79.923 kg I&O - Last 24 hours: Intake & Output 09/09/20 09/10/20 09/10/20 22:59 06:59 14:59 Intake Total 240 1800 Output Total 400 Balance -160 1800 Med Orders - Current: Current Medications Acetaminophen (Tylenol) 650 mg PO Q6H [facility] Last Admin: 09/10/20 09:13 Dose: 650 mg Documented by: Diphenhydramine HCl (Benadryl) 25 mg IVPUSH Q6H PRN PRN Reason: Itching or Nausea Last Admin: 09/08/20 11:49 Dose: 25 mg Documented by: Docusate Sodium (Colace) 100 mg PO BID [facility] Last Admin: 09/10/20 09:14 Dose: 100 mg Documented by: Ephedrine Sulfate (Ephedrine Sulfate) 5 mg IVPUSH SEECOMMENT PRN PRN Reason: Other Ferrous Sulfate (Ferrous Sulfate) 324 mg PO BIDMEALS [facility] Last Admin: 09/10/20 07:52 Dose: 324 mg Documented by: Oxytocin/Lactated Ringer's (Pitocin In Lr 10 Units/1,000 Ml) 10 unit in 1,000 mls @ 100 mls/hr IV .CONTINUOUS [facility] Ibuprofen (Motrin) 600 mg PO Q6H PRN PRN Reason: mild pain or fever Last Admin: 09/10/20 05:13 Dose: 600 mg Documented by: Magnesium Hydroxide (Milk Of Magnesia) 30 ml PO BEDTIME PRN PRN Reason: Constipation Naloxone HCl (Narcan) 0.1 mg IVPUSH SEECOMMENT PRN PRN Reason: Respiratory Depression Oxycodone HCl (Oxycodone) 5 mg PO Q6H PRN PRN Reason: Pain (moderate 4-6) Oxycodone HCl (Oxycodone) 10 mg PO Q6H PRN PRN Reason: Pain (severe 7-10) Last Admin: 09/09/20 21:03 Dose: 10 mg Documented by: Prenat Multivit/Motion Picture [employer]inter/Iron/Folic Ac ( Plus Iron) 1 each PO DAILY [facility] Last Admin: 09/10/20 09:14 Dose: 1 each Documented by: Simethicone (Simethicone) 80 mg PO Q6H PRN PRN Reason: Gas Last Admin: 09/10/20 09:13 Dose: 80 mg Documented by: Discontinued Medications Bupivacaine HCl (Marcaine 0.5%) Confirm Administered Dose 30 ml .ROUTE .STK-MED ONE Stop: 09/08/20 07:09 Last Admin: 09/08/20 08:08 Dose: 20 ml Documented by: Cefazolin Sodium (Ancef) Confirm Administered Dose 2 gm .ROUTE .STK-MED ONE Stop: 09/08/20 06:51 Citric Acid/Sodium Citrate (Bicitra Solution) 30 ml PO ONETIME ONE Stop: 09/08/20 06:31 Last Admin: 09/08/20 07:17 Dose: 30 ml Documented by: Citric Acid/Sodium Citrate (Bicitra Solution) Confirm Administered Dose 30 ml .ROUTE .STK-MED ONE Stop: 09/08/20 07:12 Last Admin: 09/08/20 10:10 Dose: Not Given Documented by: Diphenhydramine HCl (Benadryl) 25 mg IVPUSH Q6H PRN PRN Reason: Pruritis Stop: 09/08/20 18:00 Ephedrine Sulfate (Ephedrine Sulfate) Confirm Administered Dose 50 mg .ROUTE . STK-MED ONE Stop: 09/08/20 08:04 Fentanyl (Sublimaze) Confirm Administered Dose 100 mcg .ROUTE .STK-MED ONE Stop: 09/08/20 06:50 Fentanyl (Sublimaze) 50 mcg IVPUSH Q5M PRN PRN Reason: Pain Stop: 09/08/20 18:00 Ferrous Sulfate (Ferrous Sulfate) [facility] Last Admin: 09/09/20 06:51 Dose: 324 mg Documented by: Oxytocin/Lactated Ringer's (Pitocin In Lr 10 Units/1,000 Ml) 10 unit in 1,000 mls @ 100 mls/hr IV ASDIRECTED [facility] Cefazolin Sodium/Dextrose 2 gm (/ Premix) 50 mls @ 100 mls/hr IV ONETIME ONE Stop: 09/08/20 04:14 Last Admin: 09/08/20 10:11 Dose: Not Given Documented by: Lactated Ringer's (Ringers, Lactated) 1,000 mls @ 125 mls/hr IV ASDIRECTED [facility] Last Admin: 09/08/20 07:17 Dose: 125 mls/hr Documented by: Lactated Ringer's (Ringers, Lactated) Confirm Administered Dose 1,000 mls @ as directed .ROUTE .STK-MED ONE Stop: 09/08/20 08:14 Lactated Ringer's (Ringers, Lactated) Confirm Administered Dose 1,000 mls @ as directed .ROUTE .STK-MED ONE Stop: 09/08/20 08:31 Dextrose/Lactated Ringer's (Dextrose 5%-Lactated Ringers) 1,000 mls @ 125 mls/hr IV ASDIRECTED [facility] Stop: 09/08/20 17:47 Last Admin: 09/08/20 13:21 Dose: 125 mls/hr Documented by: Ketorolac Tromethamine (Toradol) Confirm Administered Dose 30 mg .ROUTE .STK-MED ONE Stop: 09/08/20 08:39 Ketorolac Tromethamine (Toradol) 30 mg IVPUSH Q6H [facility] Stop: 09/09/20 02:46 Last Admin: 09/09/20 02:53 Dose: 30 mg Documented by: Metoclopramide HCl (Reglan) 10 mg IVPUSH ONETIME ONE Stop: 09/08/20 06:31 Last Admin: 09/08/20 07:16 Dose: 10 mg Documented by: Metoclopramide HCl (Reglan) Confirm Administered Dose 10 mg .ROUTE .STK-MED ONE Stop: 09/08/20 07:11 Last Admin: 09/08/20 10:10 Dose: Not Given Documented by: Miscellaneous Medication (Phenylephrine 1 Mg/10 Ml-Ns) Confirm Administered Dose 1 mg .ROUTE .STK-MED ONE Stop: 09/08/20 08:04 Morphine Sulfate (Duramorph Pf) Confirm Administered Dose 10 mg .ROUTE .STK-MED ONE Stop: 09/08/20 06:50 Ondansetron HCl (Zofran) 4 mg IVPUSH ONETIME PRN PRN Reason: Nausea/Vomiting Stop: 09/08/20 18:00 Oxycodone/Acetaminophen (Percocet 325-5 Mg) 1 tab PO Q6H PRN PRN Reason: Pain (moderate 4-6) Last Admin: 09/09/20 06:10 Dose: 1 tab Documented by: Oxycodone/Acetaminophen (Percocet 325-5 Mg) 2 tab PO Q6H PRN PRN Reason: Pain (severe 7-10) Oxytocin (Pitocin) Confirm Administered Dose 20 unit .ROUTE .STK-MED ONE Stop: 09/08/20 06:50 Oxytocin (Pitocin) Confirm Administered Dose 20 unit .ROUTE .STK-MED ONE Stop: 09/08/20 08:28 Sodium Chloride (Saline Flush) 10 ml FLUSH ASDIRECTED PRN PRN Reason: Keep Vein Open
== END 2020-09-10 12:55 | disposition home or self-care (01) | DRG 540 ==
LOC: UNDOADMIN 09-08 05:27 → JD.OB 09-08 05:27
PROVIDERS: ADMIT Obstetrics & Gynecology; ATTEND Obstetrics & Gynecology
PROC: 10D00Z1 Extraction of Products of Conception, Low, Open Approach (ICD-10-PCS; principal; 2020-09-08)
DX: O34.211 Maternal care for low transverse scar from previous cesarean delivery (principal); Z3A.39 39 weeks gestation of pregnancy; Z37.0 Single live birth; O99.62 Diseases of the digestive system complicating childbirth; K21.9 Gastro-esophageal reflux disease without esophagitis; O99.344 Other mental disorders complicating childbirth; F41.8 Other specified anxiety disorders
CPT/HCPCS: 01961; 36415; 59025; 85025; 86592; 86850; 86900; 86901; A9270-GY; J0690; J1200; J1885; J2270; J2370; J2590; J2765; J3010; J3490; J7120; J7121

== ENCOUNTER 2024-01-13 22:00 | Observation (INO) | payer OTHER ==
[2024-01-13 22:56] LABS: BASOPHILS ABSOLUTE AUTO 0.1 K/mm3 (0.0-0.2); BASOPHILS PERCENT AUTO 0.6 % (0.0-1.0); EOSINOPHILS ABSOLUTE AUTO 0.3 K/mm3 (0.0-0.4); EOSINOPHILS PERCENT AUTO 2.4 % (0.0-6.0); HEMOGLOBIN 15.1 gm/dl (12.0-16.0); IMMATURE GRAN ABSOLUTE AUTO 0.03 K/mm3 (0.00-0.05); IMMATURE GRAN PERCENT AUTO 0.2 % (0.0-0.4); LYMPHOCYTES ABSOLUTE AUTO 2.3 K/mm3 (1.0-4.8); LYMPHOCYTES PERCENT AUTO 18.5 % (24.0-44.0); MEAN CORPUSCULAR HEMOGLOBIN 31.2 pg (28.0-32.0); MEAN CORPUSCULAR HGB CONC 33.6 g/dl (32.0-36.0); MEAN PLATELET VOLUME 9.1 fl (9.4-12.3); MONOCYTES PERCENT AUTO 8.1 % (0.0-8.0); NEUTROPHILS ABSOLUTE AUTO 8.6 K/mm3 (1.8-7.7); NEUTROPHILS PERCENT AUTO 70.2 % (41.0-71.0); PLATELET COUNT,PLT 269 K/mm3 (150-400); RED BLOOD CELL COUNT 4.84 M/mm3 (4.10-5.30); WHITE BLOOD CELL COUNT,WBC 12.29 K/mm3 (3.9-11.3)
[2024-01-13] MEDS: Ondansetron 4 MG/2 ML SDV IVPUSH ONE (23:01)
[2024-01-13] MEDS: Sodium Chloride 0.9% 10 ML Syringe FLUSH PRN (23:02)
[2024-01-13] MEDS: Sodium Chloride 0.9% 1,000 ML IV STA (23:02)
[2024-01-13 23:06] LABS: APPEARANCE,URINE CLEAR (Clear); BILIRUBIN,URINE NEGATIVE (Negative); COLOR,URINE YELLOW (Yellow); GLUCOSE,URINE NEGATIVE (Negative); KETONES,URINE 1+ (Negative); LEUKOCYTE ESTERASE,URINE NEGATIVE (Negative); NITRITE,URINE NEGATIVE (Negative); OCCULT BLOOD,URINE NEGATIVE (Negative); PROTEIN,URINE NEGATIVE (Negative); UROBILINOGEN,URINE 0.2 (0.2-1.0)
[2024-01-13 23:08] LABS: A/G RATIO 1.4 (1-2); ALBUMIN 4.5 g/dl (3.4-5.0); ANION GAP 16.8 (5-15); BILIRUBIN TOTAL 0.4 mg/dL (0.2-1.0); BUN/CREATININE RATIO 24.3 (14-18); CALCIUM 9.7 mg/dL (8.5-10.1); CREATININE 1.4 mg/dL (0.55-1.02); EST CRCL DRUG DOSING (CG) 45.2 mL/min; POTASSIUM,K 3.8 mEq/L (3.5-5.1); PROTEIN TOTAL,TP 7.7 g/dl (6.4-8.2)
[2024-01-13 23:16] LABS: BACTERIA,URINE FEW /hpf (FEW); RBC,URINE 0-5 /hpf (0-5); SQUAMOUS EPITHELIAL CELLS,UR 0-5 /hpf (0-5); WBC,URINE 0-5 /hpf (0-5)
[2024-01-13 23:17] LABS: MUCUS,URINE FEW /hpf (FEW)
[2024-01-13] MEDS: Iopamidol 612 MG/ML 100 ML Bottle IVPUSH ONE (23:24)
[2024-01-13] MEDS: Ketorolac 30 MG/ML SDV IVPUSH ONE (23:52)
[2024-01-14] MEDS: HYDROmorphone 0.5 MG/0.5 ML Syringe IVPUSH ONE (00:39)
[2024-01-14] MEDS: Piperacillin/Tazobactam 4.5 GM in Sodium Chloride 0.9% 100 ML IV ONE (00:40)
[2024-01-14] MEDS ORDERED: HYDROmorphone 0.5 MG/0.5 ML Syringe IVPUSH PRN ×2 (03:12→15:34)
[2024-01-14] MEDS ORDERED: Ondansetron 4 MG/2 ML SDV IVPUSH PRN ×2 (03:16→15:34)
[2024-01-14] MEDS: Sodium Chloride 0.9% 1,000 ML IV SCH (03:32)
[2024-01-14] MEDS: HYDROmorphone 0.5 MG/0.5 ML Syringe IVPUSH PRN (04:31)
[2024-01-14] MEDS: Piperacillin/Tazobactam 4.5 GM in Sodium Chloride 0.9% 100 ML IV SCH (04:34)
[2024-01-14] MEDS ORDERED: Piperacillin/Tazobactam 3.375 GM in Sodium Chloride 0.9% 100 ML IV SCH (08:00)
[2024-01-14] MEDS ORDERED: Rocuronium 50 MG/5 ML Vial ONE (13:46)
[2024-01-14] MEDS ORDERED: Midazolam 1 MG/ML 2 ML SDV ONE (13:46)
[2024-01-14] MEDS ORDERED: Lidocaine 1% 5 ML VIAL ONE (13:46)
[2024-01-14] MEDS ORDERED: Propofol 200 MG/20 ML SDV ONE (13:46)
[2024-01-14] MEDS ORDERED: Ondansetron 4 MG/2 ML SDV ONE (13:46)
[2024-01-14] MEDS ORDERED: fentaNYL 250 MCG/5 ML SDV ONE (13:46)
[2024-01-14] MEDS ORDERED: Dexamethasone 4 MG/ML 5 ML MDV ONE (14:22)
[2024-01-14] MEDS ORDERED: Neostigmine Methylsulfate 10 MG/10 ML MDV ONE (14:52)
[2024-01-14] MEDS ORDERED: Lactated Ringers 1,000 ML ONE (15:11)
[2024-01-14] MEDS ORDERED: fentaNYL 100 MCG/2 ML SDV IVPUSH PRN (15:34)
[2024-01-14] MEDS: EPINEPHrine 1 MG/ML SDV ONE (15:40)
[2024-01-14] MEDS: Lidocaine 1% 30 ML SDV ONE (15:40)
[2024-01-14] MEDS: Bupivacaine 0.5% 30 ML SDV ONE (15:40)
[2024-01-14 18:54] VITALS: BP 103/58; PULSE 62
== END 2024-01-14 18:45 | disposition home or self-care (01) ==
LOC: JD.ED 22:00 → JD.MS 01-14 00:51
PROVIDERS: ADMIT Surgery; ATTEND Surgery
DX: K35.33 Acute appendicitis with perforation, localized peritonitis, and gangrene, with abscess (principal); F32.A Depression, unspecified; F41.9 Anxiety disorder, unspecified; Z79.899 Other long term (current) drug therapy
CPT/HCPCS: 00840; 36415; 74177; 74177-26; 80053; 81001; 82947; 83690; 84703; 85025; 96361; 96365; 96366; 96375; 96376; 99284; 99285-25; G0378; J0171; J0665; J1100; J1170; J1596; J1885; J2250; J2405; J2543; J2704; J2710; J3010; J3490; J7030; J7120; Q9967